=== PATIENT | male | born 1945 | race Caucasian/White ===

== ENCOUNTER 2019-11-20 18:31 | Inpatient (IN) | payer MEDICARE, OTHER ==
[2019-11-20] MEDS ORDERED: Dexamethasone 4 MG Tab PO ONE (20:29)
[2019-11-20] MEDS ORDERED: Sodium Chloride 0.9% 1,000 ML IV SCH ×2 (20:30→23:17)
--- NOTE | 2019-11-20 20:49 | EDM.PDOC ---
ED HPI GENERAL MEDICAL PROBLEM - General Chief Complaint: Respiratory Problem Stated Complaint: COVID Time Seen by Provider: 11/20/19 20:00 Source of Information: Reports: Patient History Limitations: Reports: No Limitations - History of Present Illness INITIAL COMMENTS - FREE TEXT/NARRATIVE: chief complaint: shortness of breath This is a 74 year old male presents to the ER via POV, reports he was camping with friends last week. [place] he got cold/chilled. On Sunday He started to have a cough, nausea, vomiting, chills and shortness of breath. He called on Sunday and had a virtual clinic visit with recommendation for Covid testing on Sunday. He had a drive-by Covid test which was positive. He tried to stay at home but today he was very weak, coughing, and was very short of breath with any activity. His last meal was a banana this morning, very little fluids today. void a little, bowel movement normal Past medical history -Asthma- use inhaler bid -Venous stasis ulcers- bilateral of lower legs -hypertension denies diabetes, smoking, or any heart procedures.or DE Onset: Gradual Onset Date: 11/16/19 Duration: Day(s):, Getting Worse Location: Reports: Chest (cough with shortness of breath), Generalized Quality: Reports: Other (weakness) Severity: Severe Improves with: Reports: Rest Worsens with: Reports: Eating, Movement Context: Reports: Other (Covid ) Associated Symptoms: Reports: Cough, Fever/Chills, Headaches, Loss of Appetite, Malaise, Nausea/Vomiting, Shortness of Breath, Weakness - Related Data Allergies Allergy/AdvReac Type Severity Reaction Status Date / Time amlodipine besylate Allergy Swelling Verified 11/20/19 19:01 [From [facility]] Sulfa (Sulfonamide Allergy Cannot Verified 11/20/19 19:01 Antibiotics) Remember Home Meds: Home Meds Fluticasone Propionate [Flovent] 1 squirt NASBOTH DAILY 02/08/14 [History] Lisinopril 40 mg PO DAILY 02/08/14 [History] Warfarin [Coumadin] 2.5 mg PO ASDIRECTED 02/08/14 [History] Albuterol [IJD: Ventolin HFA] 2 puff INH Q6HR PRN 06/29/15 [History] Sildenafil Citrate [Viagra] 100 mg PO ASDIRECTED PRN 06/29/15 [History] Fluticasone Propion/Salmeterol [Wixela 250-50 Inhub] 1 dose INH BID 11/20/19 [History] Gabapentin [Neurontin] 300 mg PO BID 11/20/19 [History] Meloxicam 15 mg PO DAILY 11/20/19 [History] Tamsulosin HCl 0.4 mg PO DAILY 11/20/19 [History] hydroCHLOROthiazide [Hydrochlorothiazide] 25 mg PO DAILY 11/20/19 [History] Past Medical History HEENT History: Reports: Cataract, Impaired Vision, Sinusitis Other HEENT History: wears glasses Cardiovascular History: Reports: Blood Clots/VTE/DVT, Hypertension, SOB on Exertion Respiratory History: Reports: Asthma Gastrointestinal History: Reports: Colon Polyp, GERD Genitourinary History: Reports: Prostate Disorder, Renal Calculus Musculoskeletal History: Reports: Gout Endocrine/Metabolic History: Reports: Obesity/BMI 30+ Dermatologic History: Reports: Venous Stasis Dermatitis - Infectious Disease History Infectious Disease History: Reports: Chicken Pox, Measles, Mumps - Past Surgical History Respiratory Surgical History: Reports: None GI Surgical History: Reports: Colonoscopy, Hernia, Abdominal Endocrine Surgical History: Reports: None Musculoskeletal Surgical History: Reports: Arthroscopic Knee, Shoulder Surgery Dermatological Surgical History: Reports: Skin Biopsy Social & Family History - Family History Cardiac: Reports: DE Oncologic: Reports: Bone, Breast - Tobacco Use Smoking Status *Q: Never Smoker - Caffeine Use Caffeine Use: Reports: Coffee - Alcohol Use Days Per Week of Alcohol Use: 7 Number of Drinks Per Day: 1 Total Drinks Per Week: 7 Date of Last Drink: 11/17/19 - Recreational Drug Use Recreational Drug Use: No - Living Situation & Occupation Living situation: Reports: (Lives alone, two year ago, 2 Daughters (both live in [place], [place]), retired lives [facility].) Occupation: Retired ED ROS GENERAL - Review of Systems Review Of Systems: See Below Constitutional: Reports: Fever, Chills, Malaise, Weakness, Fatigue, Decreased Appetite HEENT: Reports: Glasses Respiratory: Reports: Shortness of Breath, Wheezing, Cough, Sputum Cardiovascular: Reports: Dyspnea on Exertion Endocrine: Reports: Fatigue GI/Abdominal: Reports: Decreased Appetite, Nausea, Vomiting : Reports: No Symptoms Skin: Reports: Wound (bilateral lower legs with venous statis ulcers) Neurological: Reports: Weakness Psychiatric: Reports: No Symptoms Hematologic/Lymphatic: Reports: Easy Bleeding (Coumadin) Immunologic: Reports: No Symptoms ED EXAM, GENERAL - Physical Exam Exam: See Below Exam Limited By: Respiratory Distress (neat and clean, appears ill, pallor, speaking in short sentences, frequent cough, oxygen sat 80% upon arrival to ER room.) General Appearance: Alert, Moderate Distress Eye Exam: Bilateral Eye: EOMI, Normal Inspection, PERRL Ears: Normal External Exam, Normal Canal (yellow ceremen noted in canal), Hearing Grossly Normal Ear Exam: Bilateral Ear: Auricle Normal, Canal Normal, TM normal Nose: Normal Inspection, Normal Mucosa Throat/Mouth: Normal Lips, Normal Teeth, No Airway Compromise, Inflammation, Other (tongue and oral pharaynx bright red) Head: Atraumatic, Normocephalic Neck: Normal Inspection, Supple, Non-Tender Respiratory/Chest: Decreased Breath Sounds, Crackles (bilateral at bases.), Wheezing (scattered, inspiratory), Accessory Muscle Use, Other (productive cough) Cardiovascular: Regular Rate, Rhythm, No Murmur Peripheral Pulses: 2+: Radial (L), Radial (R) GI/Abdominal: Normal Bowel Sounds, Soft, Non-Tender, No Organomegaly (Male) Exam: Deferred Rectal (Males) Exam: Deferred Extremities: Other (lower legs wrapped due to venous statis ulcers. ) Neurological: Alert, Oriented, No Motor/Sensory Deficits Psychiatric: Normal Affect, Normal Mood Skin Exam: Other (bilateral lower legs wrapped for v. s. ulcers. ) Lymphatic: No Adenopathy Course - Vital Signs Last Recorded V/S: Last Vital Signs Temp 37.1 C 11/20/19 19:07 Pulse 74 11/20/19 21:40 Resp 24 H 11/20/19 21:40 BP 134/76 11/20/19 21:40 Pulse Ox 94 L 11/20/19 21:40 - Orders/Labs/Meds Orders: Active Orders 24 hr Category Date Time Status Cardiac Monitoring [RC] .As Directed Care 11/20/19 20:37 Active CULTURE BLOOD [BC] Urgent Lab 11/20/19 22:11 Ordered CULTURE BLOOD [BC] Urgent Lab 11/20/19 22:11 Ordered Sodium Chloride 0.9% [Normal Saline] 1,000 ml Med 11/20/19 20:30 Active IV ASDIRECTED cefTRIAXone [Rocephin] 2 gm Med 11/20/19 22:15 Active Sodium Chloride 0.9% [Normal Saline] 50 ml IV Q24H Blood Culture x2 Reflex Set [OM.PC] Urgent Oth 11/20/19 22:11 Ordered Medication Orders Sodium Chloride (Normal Saline) 1,000 mls @ 999 mls/hr IV ASDIRECTED SABINO Last Admin: 11/20/19 20:48 Dose: 999 mls/hr Documented by: KRYSTAL Ceftriaxone Sodium 2 gm/ (Sodium Chloride) 50 mls @ 100 mls/hr IV Q24H SABINO Labs: Laboratory Tests 11/20/19 11/20/19 11/20/19 Range/Units 20:33 20:50 20:50 WBC (4.5-11.0) K/uL RBC (4.30-5.90) M/uL Hgb (12.0-15.0) g/dL Hct (40.0-54.0) % MCV (80-98) fL MCH (27-31) pg MCHC (32-36) % Plt Count (150-400) K/uL Neut % (Auto) (36-66) % Lymph % (Auto) (24-44) % Collin % (Auto) (2-6) % Eos % (Auto) (2-4) % Baso % (Auto) (0-1) % PT 22.2 H (9.5-12.0) sec INR 2.07 H (0.80-1.20) D-Dimer, Quantitative 845 H (0.0-400.0) ng/mL Sodium (140-148) mmol/L Potassium (3.6-5.2) mmol/L Chloride (100-108) mmol/L Carbon Dioxide (21-32) mmol/L Anion Gap (5.0-14.0) mmol/L BUN (7-18) mg/dL Creatinine (0.8-1.3) mg/dL Est Cr Clr Drug Dosing mL/min Estimated GFR (MDRD) (>60) Glucose (74-106) mg/dL Calcium (8.5-10.1) mg/dL Magnesium (1.8-2.4) mg/dL Total Bilirubin (0.2-1.0) mg/dL AST (15-37) U/L ALT (12-78) U/L Alkaline Phosphatase (46-116) U/L Lactate Dehydrogenase 386 H (85-227) U/L C-Reactive Protein 17.45 H (0.0-0.3) mg/dL Total Protein (6.4-8.2) g/dL Albumin (3.4-5.0) g/dL Globulin (2.3-3.5) g/dL Albumin/Globulin Ratio (1.2-2.2) Amylase (25-115) U/L Lipase 91 (73-393) U/L Procalcitonin ng/mL Urine Color (YELLOW) Urine Appearance (CLEAR) Urine pH (5.0-8.0) Ur Specific Orange (1.008-1.030) Urine Protein (NEGATIVE) mg/dL Urine Glucose (UA) (NEGATIVE) mg/dL Urine Ketones (NEGATIVE) mg/dL Urine Occult Blood (NEGATIVE) Urine Nitrite (NEGATIVE) Urine Bilirubin (NEGATIVE) Urine Urobilinogen (0.2-1.0) EU/dL Ur Leukocyte Esterase (NEGATIVE) Urine RBC (0-5) Urine WBC (0-5) Ur Epithelial Cells Amorphous Sediment Urine Bacteria Urine Mucus Urine Other 11/20/19 11/20/19 11/20/19 Range/Units 20:50 20:50 20:50 WBC 8.6 (4.5-11.0) K/uL RBC 4.34 (4.30-5.90) M/uL Hgb 13.0 D (12.0-15.0) g/dL Hct 41.2 (40.0-54.0) % MCV 95 (80-98) fL MCH 30 (27-31) pg MCHC 32 (32-36) % Plt Count 163 (150-400) K/uL Neut % (Auto) 84 H (36-66) % Lymph % (Auto) 8 L (24-44) % Collin % (Auto) 8 H (2-6) % Eos % (Auto) 0 L (2-4) % Baso % (Auto) 0 (0-1) % PT (9.5-12.0) sec INR (0.80-1.20) D-Dimer, Quantitative (0.0-400.0) ng/mL Sodium 137 L (140-148) mmol/L Potassium 3.9 (3.6-5.2) mmol/L Chloride 101 (100-108) mmol/L Carbon Dioxide 28 (21-32) mmol/L Anion Gap 11.9 (5.0-14.0) mmol/L BUN 40 H D (7-18) mg/dL Creatinine 1.8 H (0.8-1.3) mg/dL Est Cr Clr Drug Dosing 39.52 mL/min Estimated GFR (MDRD) 37 L (>60) Glucose 101 (74-106) mg/dL Calcium 8.6 (8.5-10.1) mg/dL Magnesium (1.8-2.4) mg/dL Total Bilirubin 0.4 (0.2-1.0) mg/dL AST 63 H D (15-37) U/L ALT 39 (12-78) U/L Alkaline Phosphatase 70 (46-116) U/L Lactate Dehydrogenase (85-227) U/L C-Reactive Protein (0.0-0.3) mg/dL Total Protein 7.2 (6.4-8.2) g/dL Albumin 2.7 L (3.4-5.0) g/dL Globulin 4.5 H (2.3-3.5) g/dL Albumin/Globulin Ratio 0.6 L (1.2-2.2) Amylase (25-115) U/L Lipase (73-393) U/L Procalcitonin 0.40 ng/mL Urine Color (YELLOW) Urine Appearance (CLEAR) Urine pH (5.0-8.0) Ur Specific Orange (1.008-1.030) Urine Protein (NEGATIVE) mg/dL Urine Glucose (UA) (NEGATIVE) mg/dL Urine Ketones (NEGATIVE) mg/dL Urine Occult Blood (NEGATIVE) Urine Nitrite (NEGATIVE) Urine Bilirubin (NEGATIVE) Urine Urobilinogen (0.2-1.0) EU/dL Ur Leukocyte Esterase (NEGATIVE) Urine RBC (0-5) Urine WBC (0-5) Ur Epithelial Cells Amorphous Sediment Urine Bacteria Urine Mucus Urine Other 11/20/19 11/20/19 Range/Units 20:50 21:48 WBC (4.5-11.0) K/uL RBC (4.30-5.90) M/uL Hgb (12.0-15.0) g/dL Hct (40.0-54.0) % MCV (80-98) fL MCH (27-31) pg MCHC (32-36) % Plt Count (150-400) K/uL Neut % (Auto) (36-66) % Lymph % (Auto) (24-44) % Collin % (Auto) (2-6) % Eos % (Auto) (2-4) % Baso % (Auto) (0-1) % PT (9.5-12.0) sec INR (0.80-1.20) D-Dimer, Quantitative (0.0-400.0) ng/mL Sodium (140-148) mmol/L Potassium (3.6-5.2) mmol/L Chloride (100-108) mmol/L Carbon Dioxide (21-32) mmol/L Anion Gap (5.0-14.0) mmol/L BUN (7-18) mg/dL Creatinine (0.8-1.3) mg/dL Est Cr Clr Drug Dosing mL/min Estimated GFR (MDRD) (>60) Glucose (74-106) mg/dL Calcium (8.5-10.1) mg/dL Magnesium 1.9 (1.8-2.4) mg/dL Total Bilirubin (0.2-1.0) mg/dL AST (15-37) U/L ALT (12-78) U/L Alkaline Phosphatase (46-116) U/L Lactate Dehydrogenase (85-227) U/L C-Reactive Protein (0.0-0.3) mg/dL Total Protein (6.4-8.2) g/dL Albumin (3.4-5.0) g/dL Globulin (2.3-3.5) g/dL Albumin/Globulin Ratio (1.2-2.2) Amylase 52 (25-115) U/L Lipase (73-393) U/L Procalcitonin ng/mL Urine Color Yellow (YELLOW) Urine Appearance Slightly cloudy A (CLEAR) Urine pH 5.5 (5.0-8.0) Ur Specific Orange 1.025 (1.008-1.030) Urine Protein Trace H (NEGATIVE) mg/dL Urine Glucose (UA) Negative (NEGATIVE) mg/dL Urine Ketones Negative (NEGATIVE) mg/dL Urine Occult Blood Negative (NEGATIVE) Urine Nitrite Negative (NEGATIVE) Urine Bilirubin Negative (NEGATIVE) Urine Urobilinogen 0.2 (0.2-1.0) EU/dL Ur Leukocyte Esterase Negative (NEGATIVE) Urine RBC Not seen (0-5) Urine WBC 0-5 (0-5) Ur Epithelial Cells Few Amorphous Sediment Not seen Urine Bacteria Moderate Urine Mucus Moderate Urine Other Meds: Medications Generic Name Dose Route Start Last Admin Trade Name Ana PRN Reason Stop Dose Admin Sodium Chloride 1,000 mls @ 999 mls/hr 11/20/19 20:30 11/20/19 20:48 Normal Saline IV 999 mls/hr ASDIRECTED SABINO Administration Ceftriaxone Sodium 2 gm/ 50 mls @ 100 mls/hr 11/20/19 22:15 Sodium Chloride IV Q24H SABINO Discontinued Medications Generic Name Dose Route Start Last Admin Trade Name Ana PRN Reason Stop Dose Admin Dexamethasone 6 mg 11/20/19 20:29 11/20/19 20:48 Dexamethasone PO 11/20/19 20:30 6 mg ONETIME ONE Administration - Re-Assessments/Exams Free Text/Narrative Re-Assessment/Exam: 11/20/19 21:02 consult with Hospitalist discussed plan of care with Mr. Almanza -IV fluids -Dexamethasone 6 mg po once -labs- CBC, CMP, LDH, CRP,INR, PT, D-DIMER, PROCALCITONIN, AMYLASE, LIPASE, MG++., URINE WITH MICRO -Imaging- Chest x-ray -no nebulizer treatments - inhalers okay -admit to hospital for further care and treatment Mr. Almanza agrees with plan of care 11/20/19 22:36 chest x-ray bilateral pneumonia, procalcitonin, LDH, CRP elevated. urine pending. added blood cultures x 2 admission ordered reviewed with Hospitalist admit to ICU Med-surg overflow Departure - Departure Time of Disposition: 21:06 Disposition: Admitted As Inpatient 66 Condition: Serious Clinical Impression: Hypoxemia, Sars-associated coronavirus as the cause of diseases classified elsewhere, Pneumonia - Discharge Information *PRESCRIPTION DRUG MONITORING PROGRAM REVIEWED*: Not Applicable *COPY OF PRESCRIPTION DRUG MONITORING REPORT IN PATIENT [place]: Not Applicable Sepsis Event Note (ED) - Evaluation Sepsis Screening Result: No Definite Risk - Focused Exam Vital Signs: Vital Signs Temp Pulse Resp BP Pulse Ox 11/20/19 21:40 74 24 H 134/76 94 L 11/20/19 20:30 72 26 H 129/87 94 L 11/20/19 19:59 72 26 H 133/84 94 L 11/20/19 19:29 74 22 H 133/84 94 L 11/20/19 19:10 26 H 94 L 11/20/19 19:07 37.1 C 81 27 H 129/81 80 L - My Orders Last 24 Hours: My Active Orders 11/20/19 20:30 Sodium Chloride 0.9% [Normal Saline] 1,000 ml IV ASDIRECTED 11/20/19 20:37 Cardiac Monitoring [RC] .As Directed 11/20/19 22:11 CULTURE BLOOD [BC] Urgent CULTURE BLOOD [BC] Urgent Blood Culture x2 Reflex Set [OM.PC] Urgent 11/20/19 22:15 cefTRIAXone [Rocephin] 2 gm Sodium Chloride 0.9% [Normal Saline] 50 ml IV Q24H - Assessment/Plan Last 24 Hours: My Active Orders 11/20/19 20:30 Sodium Chloride 0.9% [Normal Saline] 1,000 ml IV ASDIRECTED 11/20/19 20:37 Cardiac Monitoring [RC] .As Directed 11/20/19 22:11 CULTURE BLOOD [BC] Urgent CULTURE BLOOD [BC] Urgent Blood Culture x2 Reflex Set [OM.PC] Urgent 11/20/19 22:15 cefTRIAXone [Rocephin] 2 gm Sodium Chloride 0.9% [Normal Saline] 50 ml IV Q24H
--- NOTE | 2019-11-20 22:09 | CRLCR ---
INDICATION: Shortness of breath, positive cough TECHNIQUE: Portable upright AP view of the chest COMPARISON: None FINDINGS: There is patchy airspace disease throughout the left lung. Airspace disease is also noted in the right upper lung. The right lung base is relatively spared. There is no sizable pleural effusion or pneumothorax. The cardiac silhouette is not enlarged. The visualized osseous structures are unremarkable. IMPRESSION: Patchy bilateral airspace disease with relative sparing of the right lung base. Findings are compatible with COVID-19 pneumonia. Correlate clinically. Dictated by Anabela Romero MD @ Nov 20 2019 10:06PM Signed by Dr. Anabela Romero @ Nov 20 2019 10:08PM
[2019-11-20] MEDS ORDERED: cefTRIAXone 2 GM in Sodium Chloride 0.9% 50 ML IV SCH (22:15)
--- NOTE | 2019-11-20 22:45 | PCM.HP.2 ---
H&P History of Present Illness - General Date of Service: 11/20/19 Admit Problem/Dx: Admission Diagnosis/Problem Admission Diagnosis/Problem Pneumonia due to other specified infectious organisms Source of Information: Patient History Limitations: Reports: No Limitations - History of Present Illness Initial Comments - Free Text/Narative: - History of Present Illness INITIAL COMMENTS - FREE TEXT/NARRATIVE: chief complaint: shortness of breath This is a 74 year old male presents to the ER via POV, reports he was camping with friends last week. [place] he got cold/chilled. On Sunday He started to have a cough, nausea, vomiting, chills and shortness of breath. He called on Sunday and had a virtual clinic visit with recommendation for Covid testing on Sunday. He had a drive-by Covid test which was positive. He tried to stay at home but today he was very weak, coughing, and was very short of breath with any activity. His last meal was a banana this morning, very little fluids today. void a little, bowel movement normal Past medical history -Asthma- use inhaler bid -Venous stasis ulcers- bilateral of lower legs -hypertension denies diabetes, smoking, or any heart procedures.or VT Onset of Symptoms: Reports: Gradual Symptom Onset Date: 11/16/19 Duration of Symptoms: Reports: Getting Worse Location: Reports: Generalized (Covid positive with shortness of breath) Quality: Reports: Other (shortness of breath with activity. ) Severity: Severe Improves with: Reports: None Worsens with: Reports: Breathing, Movement Context: Reports: Other (Covid positive since Sunday ) Associated Symptoms: Reports: Cough, Fever/Chills, Headaches, Loss of Appetite, Malaise, Nausea/Vomiting, Shortness of Breath, Weakness - Related Data Allergies/Adverse Reactions: Allergies Allergy/AdvReac Type Severity Reaction Status Date / Time amlodipine besylate Allergy Swelling Verified 11/20/19 19:01 [From [facility]] Sulfa (Sulfonamide Allergy Cannot Verified 11/20/19 19:01 Antibiotics) Remember Home Medications: Home Meds Fluticasone Propionate [Flovent] 1 squirt NASBOTH DAILY 02/08/14 [History] Lisinopril 40 mg PO DAILY 02/08/14 [History] Warfarin [Coumadin] 2.5 mg PO ASDIRECTED 02/08/14 [History] Albuterol [IJD: Ventolin HFA] 2 puff INH Q6HR PRN 06/29/15 [History] Sildenafil Citrate [Viagra] 100 mg PO ASDIRECTED PRN 06/29/15 [History] Fluticasone Propion/Salmeterol [Wixela 250-50 Inhub] 1 dose INH BID 11/20/19 [History] Gabapentin [Neurontin] 300 mg PO BID 11/20/19 [History] Meloxicam 15 mg PO DAILY 11/20/19 [History] Tamsulosin HCl 0.4 mg PO DAILY 11/20/19 [History] hydroCHLOROthiazide [Hydrochlorothiazide] 25 mg PO DAILY 11/20/19 [History] Past Medical History HEENT History: Reports: Cataract, Impaired Vision, Sinusitis Other HEENT History: wears glasses Cardiovascular History: Reports: Blood Clots/VTE/DVT, Hypertension, SOB on Exertion Respiratory History: Reports: Asthma Gastrointestinal History: Reports: Colon Polyp, GERD Genitourinary History: Reports: Prostate Disorder, Renal Calculus Musculoskeletal History: Reports: Gout Endocrine/Metabolic History: Reports: Obesity/BMI 30+ Dermatologic History: Reports: Venous Stasis Dermatitis - Infectious Disease History Infectious Disease History: Reports: Chicken Pox, Measles, Mumps - Past Surgical History Respiratory Surgical History: Reports: None GI Surgical History: Reports: Colonoscopy, Hernia, Abdominal Endocrine Surgical History: Reports: None Musculoskeletal Surgical History: Reports: Arthroscopic Knee, Shoulder Surgery Dermatological Surgical History: Reports: Skin Biopsy Social & Family History - Family History Cardiac: Reports: VT Oncologic: Reports: Bone, Breast - Tobacco Use Smoking Status *Q: Never Smoker - Caffeine Use Caffeine Use: Reports: Coffee - Alcohol Use Days Per Week of Alcohol Use: 7 Number of Drinks Per Day: 1 Total Drinks Per Week: 7 Date of Last Drink: 11/17/19 - Recreational Drug Use Recreational Drug Use: No - Living Situation & Occupation Living situation: Reports: (Lives alone, two year ago, 2 Daughters (both live in [place], [place]), retired lives [facility].) Occupation: Retired H&P Review of Systems - Review of Systems: Review Of Systems: See Below General: Reports: Fever, Chills, Malaise, Weakness, Fatigue, Decreased Appetite HEENT: Reports: Glasses, Headaches (intermittent) Pulmonary: Reports: Shortness of Breath, Wheezing, Pleuritic Chest Pain, Cough, Sputum Cardiovascular: Reports: Dyspnea on Exertion, Orthopnea Gastrointestinal: Reports: Abdominal Pain, Decreased Appetite, Nausea, Vomiting Genitourinary: Reports: No Symptoms Musculoskeletal: Reports: Muscle Pain, Muscle Stiffness Skin: Reports: Other (bilateral lower legs with venous statis ulcers) Psychiatric: Reports: No Symptoms Neurological: Reports: Headache (intermittent) Hematologic/Lymphatic: Reports: Easy Bleeding (Coumadin 2.5mg po daily for hx of DVT) Immunologic: Reports: No Symptoms Exam - Exam Exam: See Below - Vital Signs Vital Signs: Last Vital Signs Temp 37.1 C 11/20/19 19:07 Pulse 74 11/20/19 21:40 Resp 24 H 11/20/19 21:40 BP 134/76 11/20/19 21:40 Pulse Ox 94 L 11/20/19 21:40 Weight: 104.326 kg - Exam Quality Assessment: Supplemental Oxygen, DVT Prophylaxis, Skin Breakdown (bilateral lower legs with venous stasis ulcers.) General: Alert, Oriented, Cooperative, Moderate Distress HEENT: PERRLA, Conjunctiva Clear, EACs Clear, EOMI, Hearing Intact, Glasses Neck: Supple, Trachea Midline Lungs: Decreased Breath Sounds (bilateral decreased breath sound, inspiritory wheezing, bilateral crackles.), Crackles, Wheezing Cardiovascular: Regular Rate, Regular Rhythm, Normal S1, Normal S2 GI/Abdominal Exam: Normal Bowel Sounds, Soft, Non-Tender, No Distention (Male) Exam: Deferred Rectal (Males) Exam: Deferred Back Exam: Normal Inspection, Full Range of Motion Extremities: Other (bilateral lower leg wrapped for venous stasis ulcers) Peripheral Pulses: 2+: Radial (L), Radial (R) Skin: Warm, Dry, Other (bilateral legs wrapped due to weeping v.s. ulcers.) Neurological: Reflexes Equal Bilateral, Strength Equal Bilateral, Normal Speech, Other Neuro Extensive - Mental Status: Alert, Oriented x3, Normal Mood/Affect, Normal Cognition Psychiatric: Alert, Normal Affect, Normal Mood Physical Exam Comments:: 74 year old male appear weak and pallor. speaking in short sentences due to shortness of breath. frequent productive cough. - Patient Data Lab Results Last 24 hrs: Laboratory Results - last 24 hr 11/20/19 11/20/19 11/20/19 Range/Units 20:33 20:50 20:50 WBC (4.5-11.0) K/uL RBC (4.30-5.90) M/uL Hgb (12.0-15.0) g/dL Hct (40.0-54.0) % MCV (80-98) fL MCH (27-31) pg MCHC (32-36) % Plt Count (150-400) K/uL Neut % (Auto) (36-66) % Lymph % (Auto) (24-44) % Dooly % (Auto) (2-6) % Eos % (Auto) (2-4) % Baso % (Auto) (0-1) % PT 22.2 H (9.5-12.0) sec INR 2.07 H (0.80-1.20) D-Dimer, Quantitative 845 H (0.0-400.0) ng/mL Sodium (140-148) mmol/L Potassium (3.6-5.2) mmol/L Chloride (100-108) mmol/L Carbon Dioxide (21-32) mmol/L Anion Gap (5.0-14.0) mmol/L BUN (7-18) mg/dL Creatinine (0.8-1.3) mg/dL Est Cr Clr Drug Dosing mL/min Estimated GFR (MDRD) (>60) Glucose (74-106) mg/dL Calcium (8.5-10.1) mg/dL Magnesium (1.8-2.4) mg/dL Total Bilirubin (0.2-1.0) mg/dL AST (15-37) U/L ALT (12-78) U/L Alkaline Phosphatase (46-116) U/L Lactate Dehydrogenase 386 H (85-227) U/L C-Reactive Protein 17.45 H (0.0-0.3) mg/dL Total Protein (6.4-8.2) g/dL Albumin (3.4-5.0) g/dL Globulin (2.3-3.5) g/dL Albumin/Globulin Ratio (1.2-2.2) Amylase (25-115) U/L Lipase 91 (73-393) U/L Procalcitonin ng/mL Urine Color (YELLOW) Urine Appearance (CLEAR) Urine pH (5.0-8.0) Ur Specific Luana (1.008-1.030) Urine Protein (NEGATIVE) mg/dL Urine Glucose (UA) (NEGATIVE) mg/dL Urine Ketones (NEGATIVE) mg/dL Urine Occult Blood (NEGATIVE) Urine Nitrite (NEGATIVE) Urine Bilirubin (NEGATIVE) Urine Urobilinogen (0.2-1.0) EU/dL Ur Leukocyte Esterase (NEGATIVE) Urine RBC (0-5) Urine WBC (0-5) Ur Epithelial Cells Amorphous Sediment Urine Bacteria Urine Mucus Urine Other 11/20/19 11/20/19 11/20/19 Range/Units 20:50 20:50 20:50 WBC 8.6 (4.5-11.0) K/uL RBC 4.34 (4.30-5.90) M/uL Hgb 13.0 D (12.0-15.0) g/dL Hct 41.2 (40.0-54.0) % MCV 95 (80-98) fL MCH 30 (27-31) pg MCHC 32 (32-36) % Plt Count 163 (150-400) K/uL Neut % (Auto) 84 H (36-66) % Lymph % (Auto) 8 L (24-44) % Dooly % (Auto) 8 H (2-6) % Eos % (Auto) 0 L (2-4) % Baso % (Auto) 0 (0-1) % PT (9.5-12.0) sec INR (0.80-1.20) D-Dimer, Quantitative (0.0-400.0) ng/mL Sodium 137 L (140-148) mmol/L Potassium 3.9 (3.6-5.2) mmol/L Chloride 101 (100-108) mmol/L Carbon Dioxide 28 (21-32) mmol/L Anion Gap 11.9 (5.0-14.0) mmol/L BUN 40 H D (7-18) mg/dL Creatinine 1.8 H (0.8-1.3) mg/dL Est Cr Clr Drug Dosing 39.52 mL/min Estimated GFR (MDRD) 37 L (>60) Glucose 101 (74-106) mg/dL Calcium 8.6 (8.5-10.1) mg/dL Magnesium (1.8-2.4) mg/dL Total Bilirubin 0.4 (0.2-1.0) mg/dL AST 63 H D (15-37) U/L ALT 39 (12-78) U/L Alkaline Phosphatase 70 (46-116) U/L Lactate Dehydrogenase (85-227) U/L C-Reactive Protein (0.0-0.3) mg/dL Total Protein 7.2 (6.4-8.2) g/dL Albumin 2.7 L (3.4-5.0) g/dL Globulin 4.5 H (2.3-3.5) g/dL Albumin/Globulin Ratio 0.6 L (1.2-2.2) Amylase (25-115) U/L Lipase (73-393) U/L Procalcitonin 0.40 ng/mL Urine Color (YELLOW) Urine Appearance (CLEAR) Urine pH (5.0-8.0) Ur Specific Luana (1.008-1.030) Urine Protein (NEGATIVE) mg/dL Urine Glucose (UA) (NEGATIVE) mg/dL Urine Ketones (NEGATIVE) mg/dL Urine Occult Blood (NEGATIVE) Urine Nitrite (NEGATIVE) Urine Bilirubin (NEGATIVE) Urine Urobilinogen (0.2-1.0) EU/dL Ur Leukocyte Esterase (NEGATIVE) Urine RBC (0-5) Urine WBC (0-5) Ur Epithelial Cells Amorphous Sediment Urine Bacteria Urine Mucus Urine Other 11/20/19 11/20/19 Range/Units 20:50 21:48 WBC (4.5-11.0) K/uL RBC (4.30-5.90) M/uL Hgb (12.0-15.0) g/dL Hct (40.0-54.0) % MCV (80-98) fL MCH (27-31) pg MCHC (32-36) % Plt Count (150-400) K/uL Neut % (Auto) (36-66) % Lymph % (Auto) (24-44) % Dooly % (Auto) (2-6) % Eos % (Auto) (2-4) % Baso % (Auto) (0-1) % PT (9.5-12.0) sec INR (0.80-1.20) D-Dimer, Quantitative (0.0-400.0) ng/mL Sodium (140-148) mmol/L Potassium (3.6-5.2) mmol/L Chloride (100-108) mmol/L Carbon Dioxide (21-32) mmol/L Anion Gap (5.0-14.0) mmol/L BUN (7-18) mg/dL Creatinine (0.8-1.3) mg/dL Est Cr Clr Drug Dosing mL/min Estimated GFR (MDRD) (>60) Glucose (74-106) mg/dL Calcium (8.5-10.1) mg/dL Magnesium 1.9 (1.8-2.4) mg/dL Total Bilirubin (0.2-1.0) mg/dL AST (15-37) U/L ALT (12-78) U/L Alkaline Phosphatase (46-116) U/L Lactate Dehydrogenase (85-227) U/L C-Reactive Protein (0.0-0.3) mg/dL Total Protein (6.4-8.2) g/dL Albumin (3.4-5.0) g/dL Globulin (2.3-3.5) g/dL Albumin/Globulin Ratio (1.2-2.2) Amylase 52 (25-115) U/L Lipase (73-393) U/L Procalcitonin ng/mL Urine Color Yellow (YELLOW) Urine Appearance Slightly cloudy A (CLEAR) Urine pH 5.5 (5.0-8.0) Ur Specific Luana 1.025 (1.008-1.030) Urine Protein Trace H (NEGATIVE) mg/dL Urine Glucose (UA) Negative (NEGATIVE) mg/dL Urine Ketones Negative (NEGATIVE) mg/dL Urine Occult Blood Negative (NEGATIVE) Urine Nitrite Negative (NEGATIVE) Urine Bilirubin Negative (NEGATIVE) Urine Urobilinogen 0.2 (0.2-1.0) EU/dL Ur Leukocyte Esterase Negative (NEGATIVE) Urine RBC Not seen (0-5) Urine WBC 0-5 (0-5) Ur Epithelial Cells Few Amorphous Sediment Not seen Urine Bacteria Moderate Urine Mucus Moderate Urine Other Result Diagrams: 11/20/19 20:50 11/20/19 20:50 Sepsis Event Note - Evaluation Sepsis Screening Result: No Definite Risk Current Stage of Sepsis: Sepsis Possible Source of Sepsis: Pulmonary - Focused Exam Sepsis Event Note Statement: Focused Sepsis Exam Completed Vital Signs: Vital Signs Temp Pulse Resp BP Pulse Ox 11/20/19 21:40 74 24 H 134/76 94 L 11/20/19 20:30 72 26 H 129/87 94 L 11/20/19 19:59 72 26 H 133/84 94 L 11/20/19 19:29 74 22 H 133/84 94 L 11/20/19 19:10 26 H 94 L 11/20/19 19:07 37.1 C 81 27 H 129/81 80 L Respiratory Effort Without Exertion: Abdominal Breathing, Use Of Accessory Muscles - Problem List (1) Pneumonia due to COVID-19 virus SNOMED Code(s): 749189540649045020 ICD Code: U07.1 - COVID-19; J12.89 - OTHER VIRAL PNEUMONIA Status: Acute Priority: High Current Visit: Yes (2) Pneumonia SNOMED Code(s): 763634078 ICD Code: J18.9 - PNEUMONIA, UNSPECIFIED ORGANISM Status: Acute Priority: High Current Visit: Yes Qualifiers: Pneumonia type: due to unspecified organism Laterality: bilateral Lung location: unspecified part of lung Qualified Code(s): J18.9 - Pneumonia, unspecified organism (3) Sars-associated coronavirus as the cause of diseases classified elsewhere SNOMED Code(s): 795406826 ICD Code: B97.21 - SARS-ASSOCIATED CORONAVIRUS CAUSING DISEASES CLASSD ELSWHR Status: Acute Priority: High Current Visit: Yes (4) Venous stasis ulcer of lower extremity SNOMED Code(s): 454326987, 309636642 ICD Code: I83.009 - VARICOSE VEINS OF UNSP LOWER EXTREMITY W ULCER OF UNSP S ITE; L97.909 - NON-PRS CHRONIC ULC UNSP PRT OF UNSP LOW LEG W UNSP SEVERITY Status: Acute Priority: High Current Visit: Yes Qualifiers: Laterality: bilateral Qualified Code(s): I83.019 - Varicose veins of right lower extremity with ulcer of unspecified site; I83.029 - Varicose veins of left lower extremity with ulcer of unspecified site; L97.919 - Non-pressure chronic ulcer of unspecified part of right lower leg with unspecified severity; L97.929 - Non-pressure chronic ulcer of unspecified part of left lower leg with unspecified severity (5) Asthma SNOMED Code(s): 858416243 ICD Code: J45.909 - UNSPECIFIED ASTHMA, UNCOMPLICATED Status: Acute Priority: High Current Visit: Yes Qualifiers: Asthma severity: moderate Asthma persistence: persistent Asthma complication type: unspecified Qualified Code(s): J45.40 - Moderate persistent asthma, uncomplicated (6) Hypertension SNOMED Code(s): 59167583 ICD Code: I10 - ESSENTIAL (PRIMARY) HYPERTENSION Status: Acute Priority: Medium Current Visit: Yes Qualifiers: Hypertension type: essential hypertension Qualified Code(s): I10 - Essent ial (primary) hypertension Problem List Initiated/Reviewed/Updated: Yes Orders Last 24hrs: Active Orders 24 hr Category Date Time Status Patient Status Manage Transfer [TRANSFER] Routine ADT 11/20/19 22:13 Active Cardiac Monitoring [RC] .As Directed Care 11/20/19 20:37 Active CULTURE BLOOD [BC] Urgent Lab 11/20/19 22:11 Ordered CULTURE BLOOD [BC] Urgent Lab 11/20/19 22:11 Ordered Sodium Chloride 0.9% [Normal Saline] 1,000 ml Med 11/20/19 20:30 Active IV ASDIRECTED cefTRIAXone [Rocephin] 2 gm Med 11/20/19 22:15 Active Sodium Chloride 0.9% [Normal Saline] 50 ml IV Q24H Blood Culture x2 Reflex Set [OM.PC] Urgent Oth 11/20/19 22:11 Ordered Resuscitation Status Routine Resus Stat 11/20/19 22:16 Ordered Medication Orders Sodium Chloride (Normal Saline) 1,000 mls @ 999 mls/hr IV ASDIRECTED [facility] Last Admin: 11/20/19 20:48 Dose: 999 mls/hr Documented by: KRYSTAL Ceftriaxone Sodium 2 gm/ (Sodium Chloride) 50 mls @ 100 mls/hr IV Q24H [facility] Assessment/Plan Comment:: ASSESSMENT AND PLAN - COVID 19 WITH BILATERAL PNEUMONIA bilateral pneumonia with complication of Covid 19 - He was hypoxic with oxygen saturation of 80% on room air, applied nasal canula now at 92%. labs show elevated CRP, Procalcitonin, lactic acid pending, Chest X-ray shows left lobe with scattered patchy infiltrates and right upper lobe with infiltrates. He was give one liter fluid bolus of Normal Saline, Dexamethasone 6 mg po and IV Rocephin 2 gram in ER. plan to admit to ICU med-surg overflow for further care and treatment. -Antibiotic coverage with IV Doxycycline 100mg bid and ceftriaxone 2 gram every 24 hours -Supplement oxygen if needed to keep oxygen saturation greater than 92% -inhalers as directed - no nebulizers at this time -blood cultures x 2 pending -lactic acid -am labs CBC, BMP, PROCALCITONIN, CRP -am chest x-ray at 0900 Venous Stasis Ulcer -bilateral legs wrapped Asthma -continue nebs. Hypertension -continue outpatient medications Maintenance issues - - DVT prophylaxis - Coumadin 2.5 mg po daily - GI prophylaxis - PPI - Nutrition - regular diet - Edouard catheter - not indicated CODE STATUS - full Admission justification - This patient will be admitted for inpatient services and is medically appropriate meeting medical necessity for inpatient admission as outlined in my documentation. I reasonably expect the patient will require inpatient services that span a period time over 2 midnights. I reasonably expect this patient to be discharged or transferred within 96 hours [facility]. Disposition - anticipate discharge home after the hospital stay Primary care physician - Dr. Thomas Hospitalist- Simone Bueno M.D. - Mortality Measure Prognosis:: Good
[2019-11-20] MEDS ORDERED: Doxycycline 100 MG in Sodium Chloride 0.9% 100 ML IV SCH (23:17)
[2019-11-20] MEDS ORDERED: Warfarin 2.5 MG Tab PO SCH (23:17)
[2019-11-20] MEDS ORDERED: Docusate Sodium 100 MG Cap PO PRN (23:17)
[2019-11-20] MEDS ORDERED: Melatonin 3 MG Tab PO PRN (23:17)
[2019-11-20] MEDS ORDERED: LORazepam 2 MG/ML SDV IV PRN (23:17)
[2019-11-20] MEDS ORDERED: Morphine 2 MG/ML SYRINGE IVPUSH PRN (23:17)
[2019-11-20] MEDS ORDERED: Bisacodyl 5 MG Tab PO PRN (23:17)
[2019-11-20] MEDS ORDERED: Albuterol 8 GM Inhaler INH PRN (23:33)
[2019-11-21] MEDS: Albuterol/Ipratropium 4 GM Inhalation Spray INH SCH ×6 (00:32→19:34)
[2019-11-21] MEDS: Acetaminophen 325 MG Tab PO PRN (00:37)
[2019-11-21] MEDS ORDERED: Pantoprazole 40 MG Vial IVPUSH SCH (07:30)
[2019-11-21] MEDS: Fluticasone Propionate Nasal Spray 16 GM Bottle NASBOTH SCH (08:44)
[2019-11-21] MEDS: Formoterol/Mometasone 200-5 MCG 8.8 GM Inhaler IH SCH ×2 (08:44→20:32)
[2019-11-21] MEDS: Hydrochlorothiazide 25 MG Tab PO SCH (08:49)
[2019-11-21] MEDS: Gabapentin 300 MG Cap PO SCH ×2 (08:49→20:31)
[2019-11-21] MEDS: Meloxicam 7.5 MG Tab PO SCH (08:50)
[2019-11-21] MEDS: Tamsulosin 0.4 MG Cap.ER PO SCH (08:50)
[2019-11-21] MEDS: Pantoprazole 40 MG Tab.CR PO SCH (08:51)
[2019-11-21] MEDS: Lisinopril 20 MG Tab PO SCH (08:57)
[2019-11-21] MEDS ORDERED: FLUTICASONE PROPIONATE NASBOTH SCH (09:00)
--- NOTE | 2019-11-21 09:45 | PCM.PN ---
- General Info Date of Service: 11/21/19 Subjective Update: No acute events overnight following admission. Patient remains very dyspneic and has an intermittent cough. Coughing spells lead to increased shortness of breath and nausea. He is now on 4 L of supplemental oxygen. No complaints of fever, myalgias, nausea or diarrhea. He is very fatigued and weak. We did talk about starting Remdesivir. At this point I see no contraindications and he was interested in using this medication. - Review of Systems General: Reports: Weakness. Denies: Fever Pulmonary: Reports: Shortness of Breath, Cough - Patient Data Vitals - Most Recent: Last Vital Signs Temp 35.9 C L 11/21/19 08:00 Pulse 78 11/21/19 08:00 Resp 22 H 11/21/19 08:00 BP 153/96 H 11/21/19 08:57 Pulse Ox 87 L 11/21/19 08:00 Weight - Most Recent: 100.425 kg I&O - Last 24 Hours: Intake & Output 11/20/19 11/21/19 11/21/19 22:59 06:59 14:59 Intake Total 2261 Output Total 250 200 Balance 2010 - Lab Results Last 24 Hours: Laboratory Results - last 24 hr 11/20/19 11/20/19 11/20/19 Range/Units 20:33 20:50 20:50 WBC (4.5-11.0) K/uL RBC (4.30-5.90) M/uL Hgb (12.0-15.0) g/dL Hct (40.0-54.0) % MCV (80-98) fL MCH (27-31) pg MCHC (32-36) % Plt Count (150-400) K/uL Neut % (Auto) (36-66) % Lymph % (Auto) (24-44) % Gulf % (Auto) (2-6) % Eos % (Auto) (2-4) % Baso % (Auto) (0-1) % PT 22.2 H (9.5-12.0) sec INR 2.07 H (0.80-1.20) D-Dimer, Quantitative 845 H (0.0-400.0) ng/mL Sodium (140-148) mmol/L Potassium (3.6-5.2) mmol/L Chloride (100-108) mmol/L Carbon Dioxide (21-32) mmol/L Anion Gap (5.0-14.0) mmol/L BUN (7-18) mg/dL Creatinine (0.8-1.3) mg/dL Est Cr Clr Drug Dosing mL/min Estimated GFR (MDRD) (>60) Glucose (74-106) mg/dL Lactic Acid (0.4-2.0) mmol/L Calcium (8.5-10.1) mg/dL Magnesium (1.8-2.4) mg/dL Total Bilirubin (0.2-1.0) mg/dL AST (15-37) U/L ALT (12-78) U/L Alkaline Phosphatase (46-116) U/L Lactate Dehydrogenase 386 H (85-227) U/L C-Reactive Protein 17.45 H (0.0-0.3) mg/dL Total Protein (6.4-8.2) g/dL Albumin (3.4-5.0) g/dL Globulin (2.3-3.5) g/dL Albumin/Globulin Ratio (1.2-2.2) Amylase (25-115) U/L Lipase 91 (73-393) U/L Procalcitonin ng/mL Urine Color (YELLOW) Urine Appearance (CLEAR) Urine pH (5.0-8.0) Ur Specific [place] (1.008-1.030) Urine Protein (NEGATIVE) mg/dL Urine Glucose (UA) (NEGATIVE) mg/dL Urine Ketones (NEGATIVE) mg/dL Urine Occult Blood (NEGATIVE) Urine Nitrite (NEGATIVE) Urine Bilirubin (NEGATIVE) Urine Urobilinogen (0.2-1.0) EU/dL Ur Leukocyte Esterase (NEGATIVE) Urine RBC (0-5) Urine WBC (0-5) Ur Epithelial Cells Amorphous Sediment Urine Bacteria Urine Mucus Urine Other 11/20/19 11/20/19 11/20/19 Range/Units 20:50 20:50 20:50 WBC 8.6 (4.5-11.0) K/uL RBC 4.34 (4.30-5.90) M/uL Hgb 13.0 D (12.0-15.0) g/dL Hct 41.2 (40.0-54.0) % MCV 95 (80-98) fL MCH 30 (27-31) pg MCHC 32 (32-36) % Plt Count 163 (150-400) K/uL Neut % (Auto) 84 H (36-66) % Lymph % (Auto) 8 L (24-44) % Gulf % (Auto) 8 H (2-6) % Eos % (Auto) 0 L (2-4) % Baso % (Auto) 0 (0-1) % PT (9.5-12.0) sec INR (0.80-1.20) D-Dimer, Quantitative (0.0-400.0) ng/mL Sodium 137 L (140-148) mmol/L Potassium 3.9 (3.6-5.2) mmol/L Chloride 101 (100-108) mmol/L Carbon Dioxide 28 (21-32) mmol/L Anion Gap 11.9 (5.0-14.0) mmol/L BUN 40 H D (7-18) mg/dL Creatinine 1.8 H (0.8-1.3) mg/dL Est Cr Clr Drug Dosing 39.52 mL/min Estimated GFR (MDRD) 37 L (>60) Glucose 101 (74-106) mg/dL Lactic Acid (0.4-2.0) mmol/L Calcium 8.6 (8.5-10.1) mg/dL Magnesium (1.8-2.4) mg/dL Total Bilirubin 0.4 (0.2-1.0) mg/dL AST 63 H D (15-37) U/L ALT 39 (12-78) U/L Alkaline Phosphatase 70 (46-116) U/L Lactate Dehydrogenase (85-227) U/L C-Reactive Protein (0.0-0.3) mg/dL Total Protein 7.2 (6.4-8.2) g/dL Albumin 2.7 L (3.4-5.0) g/dL Globulin 4.5 H (2.3-3.5) g/dL Albumin/Globulin Ratio 0.6 L (1.2-2.2) Amylase (25-115) U/L Lipase (73-393) U/L Procalcitonin 0.40 ng/mL Urine Color (YELLOW) Urine Appearance (CLEAR) Urine pH (5.0-8.0) Ur Specific [place] (1.008-1.030) Urine Protein (NEGATIVE) mg/dL Urine Glucose (UA) (NEGATIVE) mg/dL Urine Ketones (NEGATIVE) mg/dL Urine Occult Blood (NEGATIVE) Urine Nitrite (NEGATIVE) Urine Bilirubin (NEGATIVE) Urine Urobilinogen (0.2-1.0) EU/dL Ur Leukocyte Esterase (NEGATIVE) Urine RBC (0-5) Urine WBC (0-5) Ur Epithelial Cells Amorphous Sediment Urine Bacteria Urine Mucus Urine Other 11/20/19 11/20/19 11/20/19 Range/Units 20:50 21:48 23:22 WBC (4.5-11.0) K/uL RBC (4.30-5.90) M/uL Hgb (12.0-15.0) g/dL Hct (40.0-54.0) % MCV (80-98) fL MCH (27-31) pg MCHC (32-36) % Plt Count (150-400) K/uL Neut % (Auto) (36-66) % Lymph % (Auto) (24-44) % [place] % (Auto) (2-6) % Eos % (Auto) (2-4) % Baso % (Auto) (0-1) % PT (9.5-12.0) sec INR (0.80-1.20) D-Dimer, Quantitative (0.0-400.0) ng/mL Sodium (140-148) mmol/L Potassium (3.6-5.2) mmol/L Chloride (100-108) mmol/L Carbon Dioxide (21-32) mmol/L Anion Gap (5.0-14.0) mmol/L BUN (7-18) mg/dL Creatinine (0.8-1.3) mg/dL Est Cr Clr Drug Dosing mL/min Estimated GFR (MDRD) (>60) Glucose (74-106) mg/dL Lactic Acid 2.0 (0.4-2.0) mmol/L Calcium (8.5-10.1) mg/dL Magnesium 1.9 (1.8-2.4) mg/dL Total Bilirubin (0.2-1.0) mg/dL AST (15-37) U/L ALT (12-78) U/L Alkaline Phosphatase (46-116) U/L Lactate Dehydrogenase (85-227) U/L C-Reactive Protein (0.0-0.3) mg/dL Total Protein (6.4-8.2) g/dL Albumin (3.4-5.0) g/dL Globulin (2.3-3.5) g/dL Albumin/Globulin Ratio (1.2-2.2) Amylase 52 (25-115) U/L Lipase (73-393) U/L Procalcitonin ng/mL Urine Color Yellow (YELLOW) Urine Appearance Slightly cloudy A (CLEAR) Urine pH 5.5 (5.0-8.0) Ur Specific [place] 1.025 (1.008-1.030) Urine Protein Trace H (NEGATIVE) mg/dL Urine Glucose (UA) Negative (NEGATIVE) mg/dL Urine Ketones Negative (NEGATIVE) mg/dL Urine Occult Blood Negative (NEGATIVE) Urine Nitrite Negative (NEGATIVE) Urine Bilirubin Negative (NEGATIVE) Urine Urobilinogen 0.2 (0.2-1.0) EU/dL Ur Leukocyte Esterase Negative (NEGATIVE) Urine RBC Not seen (0-5) Urine WBC 0-5 (0-5) Ur Epithelial Cells Few Amorphous Sediment Not seen Urine Bacteria Moderate Urine Mucus Moderate Urine Other 11/21/19 11/21/19 11/21/19 Range/Units 04:54 04:54 04:54 WBC 7.2 (4.5-11.0) K/uL RBC 3.92 L (4.30-5.90) M/uL Hgb 12.0 (12.0-15.0) g/dL Hct 37.4 L (40.0-54.0) % MCV 95 (80-98) fL MCH 31 (27-31) pg MCHC 32 (32-36) % Plt Count 162 (150-400) K/uL Neut % (Auto) 90 H (36-66) % Lymph % (Auto) 6 L (24-44) % [place] % (Auto) 4 (2-6) % Eos % (Auto) 0 L (2-4) % Baso % (Auto) 0 (0-1) % PT 25.5 H (9.5-12.0) sec INR 2.38 H (0.80-1.20) D-Dimer, Quantitative (0.0-400.0) ng/mL Sodium 138 L (140-148) mmol/L Potassium 4.5 (3.6-5.2) mmol/L Chloride 104 (100-108) mmol/L Carbon Dioxide 25 (21-32) mmol/L Anion Gap 13.5 (5.0-14.0) mmol/L BUN 39 H (7-18) mg/dL Creatinine 1.6 H (0.8-1.3) mg/dL Est Cr Clr Drug Dosing 44.46 mL/min Estimated GFR (MDRD) 42 L (>60) Glucose 113 H (74-106) mg/dL Lactic Acid (0.4-2.0) mmol/L Calcium 8.0 L (8.5-10.1) mg/dL Magnesium (1.8-2.4) mg/dL Total Bilirubin (0.2-1.0) mg/dL AST (15-37) U/L ALT (12-78) U/L Alkaline Phosphatase (46-116) U/L Lactate Dehydrogenase (85-227) U/L C-Reactive Protein 14.63 H (0.0-0.3) mg/dL Total Protein (6.4-8.2) g/dL Albumin (3.4-5.0) g/dL Globulin (2.3-3.5) g/dL Albumin/Globulin Ratio (1.2-2.2) Amylase (25-115) U/L Lipase (73-393) U/L Procalcitonin ng/mL Urine Color (YELLOW) Urine Appearance (CLEAR) Urine pH (5.0-8.0) Ur Specific [place] (1.008-1.030) Urine Protein (NEGATIVE) mg/dL Urine Glucose (UA) (NEGATIVE) mg/dL Urine Ketones (NEGATIVE) mg/dL Urine Occult Blood (NEGATIVE) Urine Nitrite (NEGATIVE) Urine Bilirubin (NEGATIVE) Urine Urobilinogen (0.2-1.0) EU/dL Ur Leukocyte Esterase (NEGATIVE) Urine RBC (0-5) Urine WBC (0-5) Ur Epithelial Cells Amorphous Sediment Urine Bacteria Urine Mucus Urine Other Med Orders - Current: Current Medications Acetaminophen (Tylenol) 650 mg PO Q4H PRN PRN Reason: Pain (Mild 1-3)/fever Last Admin: 11/21/19 00:37 Dose: 650 mg Documented by: Albuterol (Ventolin Hfa) 0 gm INH Q6HR PRN PRN Reason: Shortness of Breath Albuterol/Ipratropium (Combivent Respimat) 0 gm INH Q4H [facility] Last Admin: 11/21/19 08:41 Dose: 2 puff Documented by: Bisacodyl (Dulcolax) 5 mg PO DAILY PRN PRN Reason: Constipation Docusate Sodium (Colace) 100 mg PO BID PRN PRN Reason: Constipation Fluticasone Propionate (Flonase) 0 gm NASBOTH DAILY [facility] Last Admin: 11/21/19 08:44 Dose: 1 spray Documented by: Gabapentin (Neurontin) 300 mg PO BID [facility] Last Admin: 11/21/19 08:49 Dose: 300 mg Documented by: Hydrochlorothiazide (Hydrochlorothiazide) 25 mg PO DAILY [facility] Last Admin: 11/21/19 08:49 Dose: 25 mg Documented by: Doxycycline Hyclate 100 mg/ (Sodium Chloride) 100 mls @ 100 mls/hr IV Q12H [facility] Ceftriaxone Sodium 2 gm/ (Sodium Chloride) 50 mls @ 100 mls/hr IV Q24H [facility] Lisinopril (Prinivil) 40 mg PO DAILY [facility] Last Admin: 11/21/19 08:57 Dose: 40 mg Documented by: Lorazepam (Ativan) 1 mg IV Q6H PRN PRN Reason: Nausea/Vomiting Melatonin (Melatonin) 6 mg PO BEDTIME PRN PRN Reason: Insomnia Meloxicam (Mobic) 15 mg PO DAILY [facility] Last Admin: 11/21/19 08:50 Dose: 15 mg Documented by: Mometasone Furoate/Formoterol Fumar (Dulera 200-5 Mcg) 2 puff IH BID [facility] Last Admin: 11/21/19 08:44 Dose: 2 puff Documented by: Morphine Sulfate (Morphine) 2 mg IVPUSH Q2H PRN PRN Reason: Pain (severe 7-10) Ondansetron HCl (Zofran Odt) 4 mg PO Q6H PRN PRN Reason: Nausea able to take PO Oxycodone HCl (Oxycodone) 5 mg PO Q4H PRN PRN Reason: Pain (moderate 4-6) Pantoprazole Sodium (Protonix) 40 mg PO ACBREAKFAST [facility] Last Admin: 11/21/19 08:51 Dose: 40 mg Documented by: Tamsulosin HCl (Flomax) 0.4 mg PO DAILY [facility] Last Admin: 11/21/19 08:50 Dose: 0.4 mg Documented by: Warfarin Sodium (Coumadin) 2.5 mg PO DAILY@1300 [facility] Discontinued Medications Dexamethasone (Dexamethasone) 6 mg PO ONETIME ONE Stop: 11/20/19 20:30 Last Admin: 11/20/19 20:48 Dose: 6 mg Documented by: Sodium Chloride (Normal Saline) 1,000 mls @ 999 mls/hr IV ASDIRECTED [facility] Last Admin: 11/20/19 20:48 Dose: 999 mls/hr Documented by: Ceftriaxone Sodium 2 gm/ (Sodium Chloride) 50 mls @ 100 mls/hr IV Q24H [facility] Last Admin: 11/20/19 22:44 Dose: 100 mls/hr Documented by: Doxycycline Hyclate 100 mg/ (Sodium Chloride) 100 mls @ 100 mls/hr IV Q12H [facility] Last Admin: 11/21/19 00:05 Dose: 100 mls/hr Documented by: Sodium Chloride (Normal Saline) 1,000 mls @ 100 mls/hr IV ASDIRECTED [facility] - Exam Quality Assessment: Supplemental Oxygen General: Alert, Oriented, Cooperative, Mild Distress Lungs: Crackles (midl diffuse left > right ), Wheezing (mild left lower chest ). No: Normal Respiratory Effort (mild tachypnea ) Cardiovascular: Regular Rate, Irregular Rhythm GI/Abdominal Exam: Soft, No Distention Extremities: Other (both lower legs with RAJI stockings ). No: Increased Warmth Skin: Warm, Dry Psy/Mental Status: Alert, Normal Affect Sepsis Event Note - Evaluation Sepsis Screening Result: No Definite Risk - Focused Exam Vital Signs: Vital Signs Temp Pulse Resp BP BP Pulse Ox 11/21/19 08:57 153/96 H 11/21/19 08:00 35.9 C L 78 22 H 153/96 H 87 L 11/21/19 03:29 35.7 C L 74 18 115/67 90 L 11/21/19 00:15 74 22 H 92 L 11/21/19 00:09 92 L 11/20/19 23:45 78 20 121/76 90 L 11/20/19 23:30 36.7 C 84 22 H 124/74 91 L - Problem List Review Problem List Initiated/Reviewed/Updated: Yes - My Orders Last 24 Hours: My Active Orders 11/21/19 09:40 Convert IV to Saline Lock [OM.PC] Routine 11/21/19 09:43 Benzonatate [Tessalon Perles] 100 mg PO TID PRN Dextromethorphan/guaiFENesin [Robitussin DM] 10 ml PO Q4H PRN 11/21/19 10:00 Remdesivir (Eua) [Remdesivir (EUA)] 200 mg Sodium Chloride 0.9% [Normal Saline] 250 ml IV ONETIME 11/21/19 20:00 dexAMETHasone 6 mg PO Q24H 11/22/19 05:00 CBC W/O DIFF,HEMOGRAM [HEME] Timed (1) COMPREHENSIVE METABOLIC PN,CMP [CHEM] Timed INR,PT,PROTHROMBIN TIME [COAG] Timed 11/22/19 10:00 Remdesivir (Eua) [Remdesivir (EUA)] 100 mg Sodium Chloride 0.9% [Normal Saline] 100 ml IV Q24H - Plan Plan:: ASSESSMENT AND PLAN - COVID 19 WITH BILATERAL PNEUMONIA-complicated by acute respiratory failure with hypoxia. He is currently tachypneic and up to 4 L of supplemental oxygen. He was started on steroids last night. We talked about remdesivir and he is interested in using this medication as well. No obvious contraindications and he certainly is sick enough. We did talk about prone positioning but he is not sure he can lay on his abdomen. I believe he is at a high risk for deterioration and worsening respiratory failure. -Dexamethasone 6 mg every 24 hours -Remdesivir 200 mg x 1 and then 100 mg daily x4 more days (will check hepatic panel daily) -Encourage prone positioning if able -Continue empiric antibiotic coverage with IV Doxycycline 100mg bid and ceftriaxone 2 gram every 24 hours (procalcitonin moderately elevated) -Supplement oxygen if needed to keep oxygen saturation greater than 92% -inhalers as needed -Follow-up cultures -He is systemically anticoagulated Venous Stasis Ulcers-both lower legs affected. Wound care team is aware. -Routine wound care as recommended by Dr. Betancourt's wound care team Chronic atrial fibrillation-rate is currently controlled. He is systemically anticoagulated. -Continue home medications Asthma-no wheezing at this time. -Management as above Hypertension-blood pressure acceptable so far. -continue outpatient medications Maintenance issues - - DVT prophylaxis - Coumadin 2.5 mg po daily - GI prophylaxis - PPI - Nutrition - regular diet CODE STATUS - full code Disposition - anticipate discharge home after the hospital stay Simone Bueno M.D.
[2019-11-21] MEDS: guaiFENesin/Dextromethorphan 100-10 MG/5 ML Soln 10 ML Cup PO PRN ×3 (10:33→20:14)
[2019-11-21] MEDS: Doxycycline 100 MG in Sodium Chloride 0.9% 100 ML IV SCH ×2 (11:53→22:40)
[2019-11-21] MEDS ORDERED: Warfarin 2.5 MG Tab PO SCH (13:00)
[2019-11-21] MEDS: Benzonatate 100 MG Cap PO PRN ×2 (13:48→21:49)
[2019-11-21] MEDS: oxyCODONE 5 MG Tab PO PRN (20:14)
[2019-11-21] MEDS: Dexamethasone 4 MG Tab PO SCH (20:31)
[2019-11-21] MEDS: cefTRIAXone 2 GM in Sodium Chloride 0.9% 50 ML IV SCH (21:44)
[2019-11-22] MEDS: Albuterol/Ipratropium 4 GM Inhalation Spray INH SCH ×6 (00:05→20:04)
[2019-11-22] MEDS: oxyCODONE 5 MG Tab PO PRN ×5 (04:02→20:17)
[2019-11-22] MEDS: guaiFENesin/Dextromethorphan 100-10 MG/5 ML Soln 10 ML Cup PO PRN ×5 (04:02→20:17)
[2019-11-22] MEDS: Pantoprazole 40 MG Tab.CR PO SCH (08:12)
[2019-11-22] MEDS: Gabapentin 300 MG Cap PO SCH ×2 (08:12→20:05)
[2019-11-22] MEDS: Lisinopril 20 MG Tab PO SCH (08:13)
[2019-11-22] MEDS: Meloxicam 7.5 MG Tab PO SCH (08:13)
[2019-11-22] MEDS: Hydrochlorothiazide 25 MG Tab PO SCH (08:14)
[2019-11-22] MEDS: Benzonatate 100 MG Cap PO PRN ×2 (08:14→20:05)
[2019-11-22] MEDS: Formoterol/Mometasone 200-5 MCG 8.8 GM Inhaler IH SCH ×2 (08:15→20:06)
[2019-11-22] MEDS: Fluticasone Propionate Nasal Spray 16 GM Bottle NASBOTH SCH (08:15)
[2019-11-22] MEDS: Ondansetron 4 MG Tab.DIS PO PRN ×2 (08:25→20:33)
[2019-11-22] MEDS: REMDESIVIR (EUA) 100 MG in Sodium Chloride 0.9% 100 ML IV SCH (09:32)
[2019-11-22] MEDS ORDERED: LORazepam 2 MG/ML SDV IV PRN (09:49)
--- NOTE | 2019-11-22 09:51 | PCM.PN ---
- General Info Date of Service: 11/22/19 Subjective Update: No acute issues overnight. He is on high flow nasal cannula at 12 L. He feels pretty short of breath yet but slightly better than yesterday. Oxygenation has been stable over the past 24 hours. No fevers. Cough is a little better but still pretty bothersome. Kidney function is stable. He did have an episode of vomiting this morning. Functional Status: Reports: Pain Controlled, Tolerating Diet - Review of Systems General: Reports: Weakness. Denies: Fever Pulmonary: Reports: Shortness of Breath, Cough - Patient Data Vitals - Most Recent: Last Vital Signs Temp 36.9 C 11/21/19 23:18 Pulse 87 11/21/19 16:00 Resp 23 H 11/22/19 04:00 BP 129/49 L 11/22/19 08:13 Pulse Ox 91 L 11/22/19 04:00 Weight - Most Recent: 100.425 kg I&O - Last 24 Hours: Intake & Output 11/21/19 11/22/19 11/22/19 22:59 06:59 14:59 Intake Total 100 Balance 100 Lab Results Last 24 Hours: Laboratory Results - last 24 hr 11/21/19 11/22/19 11/22/19 Range/Units 22:40 04:10 04:10 WBC 13.4 H (4.5-11.0) K/uL RBC 4.41 (4.30-5.90) M/uL Hgb 13.1 (12.0-15.0) g/dL Hct 41.7 (40.0-54.0) % MCV 95 (80-98) fL MCH 30 (27-31) pg MCHC 31 L (32-36) % Plt Count 196 (150-400) K/uL PT 40.7 H (9.5-12.0) sec INR 3.83 H (0.80-1.20) Sodium (140-148) mmol/L Potassium (3.6-5.2) mmol/L Chloride (100-108) mmol/L Carbon Dioxide (21-32) mmol/L Anion Gap (5.0-14.0) mmol/L BUN (7-18) mg/dL Creatinine (0.8-1.3) mg/dL Est Cr Clr Drug Dosing mL/min Estimated GFR (MDRD) (>60) Glucose (74-106) mg/dL Calcium (8.5-10.1) mg/dL Total Bilirubin (0.2-1.0) mg/dL AST (15-37) U/L ALT (12-78) U/L Alkaline Phosphatase (46-116) U/L Total Protein (6.4-8.2) g/dL Albumin (3.4-5.0) g/dL Globulin (2.3-3.5) g/dL Albumin/Globulin Ratio (1.2-2.2) Procalcitonin 0.31 ng/mL 11/22/19 Range/Units 04:10 WBC (4.5-11.0) K/uL RBC (4.30-5.90) M/uL Hgb (12.0-15.0) g/dL Hct (40.0-54.0) % MCV (80-98) fL MCH (27-31) pg MCHC (32-36) % Plt Count (150-400) K/uL PT (9.5-12.0) sec INR (0.80-1.20) Sodium 139 L (140-148) mmol/L Potassium 4.6 (3.6-5.2) mmol/L Chloride 104 (100-108) mmol/L Carbon Dioxide 27 (21-32) mmol/L Anion Gap 12.6 (5.0-14.0) mmol/L BUN 45 H (7-18) mg/dL Creatinine 1.7 H (0.8-1.3) mg/dL Est Cr Clr Drug Dosing 41.90 mL/min Estimated GFR (MDRD) 40 L (>60) Glucose 114 H (74-106) mg/dL Calcium 8.3 L (8.5-10.1) mg/dL Total Bilirubin 0.3 (0.2-1.0) mg/dL AST 103 H (15-37) U/L ALT 42 (12-78) U/L Alkaline Phosphatase 71 (46-116) U/L Total Protein 6.4 (6.4-8.2) g/dL Albumin 2.3 L (3.4-5.0) g/dL Globulin 4.1 H (2.3-3.5) g/dL Albumin/Globulin Ratio 0.6 L (1.2-2.2) Procalcitonin ng/mL [place] Results Last 24 Hours: Microbiology 11/20/19 22:38 Aerobic Blood Culture - Preliminary Blood - Venous NO GROWTH AFTER 1 DAY Anaerobic Blood Culture - Preliminary NO GROWTH AFTER 1 DAY 11/20/19 22:30 Aerobic Blood Culture - Preliminary Blood - Venous - Lab Draw NO GROWTH AFTER 1 DAY Anaerobic Blood Culture - Preliminary NO GROWTH AFTER 1 DAY Med Orders - Current: Current Medications Acetaminophen (Tylenol) 650 mg PO Q4H PRN PRN Reason: Pain (Mild 1-3)/fever Last Admin: 11/21/19 00:37 Dose: 650 mg Documented by: Albuterol (Ventolin Hfa) 0 gm INH Q6HR PRN PRN Reason: Shortness of Breath Last Admin: 11/21/19 16:05 Dose: 2 puff Documented by: Albuterol/Ipratropium (Combivent Respimat) 0 gm INH Q4H [facility] Last Admin: 11/22/19 08:14 Dose: 2 puff Documented by: Benzonatate (Tessalon Perles) 100 mg PO TID PRN PRN Reason: Cough Last Admin: 11/22/19 08:14 Dose: 100 mg Documented by: Bisacodyl (Dulcolax) 5 mg PO DAILY PRN PRN Reason: Constipation Dexamethasone (Dexamethasone) 6 mg PO Q24H [facility] Last Admin: 11/21/19 20:31 Dose: 6 mg Documented by: Docusate Sodium (Colace) 100 mg PO BID PRN PRN Reason: Constipation Fluticasone Propionate (Flonase) 0 gm NASBOTH DAILY [facility] Last Admin: 11/22/19 08:15 Dose: 2 spray Documented by: Gabapentin (Neurontin) 300 mg PO BID [facility] Last Admin: 11/22/19 08:12 Dose: 300 mg Documented by: Guaifenesin/Dextromethorphan (Robitussin Dm) 10 ml PO Q4H PRN PRN Reason: Cough Last Admin: 11/22/19 08:14 Dose: 10 ml Documented by: Hydrochlorothiazide (Hydrochlorothiazide) 25 mg PO DAILY [facility] Last Admin: 11/22/19 08:14 Dose: 25 mg Documented by: Doxycycline Hyclate 100 mg/ (Sodium Chloride) 100 mls @ 100 mls/hr IV Q12H [facility] Last Admin: 11/21/19 22:40 Dose: 100 mls/hr Documented by: Ceftriaxone Sodium 2 gm/ (Sodium Chloride) 50 mls @ 100 mls/hr IV Q24H [facility] Last Admin: 11/21/19 21:44 Dose: 100 mls/hr Documented by: Remdesivir 100 mg/ Sodium (Chloride) 100 mls @ 100 mls/hr IV Q24H [facility] Last Admin: 11/22/19 09:32 Dose: 100 mls/hr Documented by: Lisinopril (Prinivil) 40 mg PO DAILY [facility] Last Admin: 11/22/19 08:13 Dose: 40 mg Documented by: Lorazepam (Ativan) 1 mg IV Q6H PRN PRN Reason: Nausea/Vomiting Melatonin (Melatonin) 6 mg PO BEDTIME PRN PRN Reason: Insomnia Meloxicam (Mobic) 15 mg PO DAILY [facility] Last Admin: 11/22/19 08:13 Dose: 15 mg Documented by: Mometasone Furoate/Formoterol Fumar (Dulera 200-5 Mcg) 2 puff IH BID [facility] Last Admin: 11/22/19 08:15 Dose: 2 puff Documented by: Morphine Sulfate (Morphine) 2 mg IVPUSH Q2H PRN PRN Reason: Pain (severe 7-10) Ondansetron HCl (Zofran Odt) 4 mg PO Q6H PRN PRN Reason: Nausea able to take PO Last Admin: 11/22/19 08:25 Dose: 4 mg Documented by: Oxycodone HCl (Oxycodone) 5 mg PO Q4H PRN PRN Reason: Pain (moderate 4-6) Last Admin: 11/22/19 08:13 Dose: 5 mg Documented by: Pantoprazole Sodium (Protonix) 40 mg PO ACBREAKFAST [facility] Last Admin: 11/22/19 08:12 Dose: 40 mg Documented by: Tamsulosin HCl (Flomax) 0.4 mg PO DAILY [facility] Last Admin: 11/21/19 08:50 Dose: 0.4 mg Documented by: Discontinued Medications Dexamethasone (Dexamethasone) 6 mg PO ONETIME ONE Stop: 11/20/19 20:30 Last Admin: 11/20/19 20:48 Dose: 6 mg Documented by: Sodium Chloride (Normal Saline) 1,000 mls @ 999 mls/hr IV ASDIRECTED [facility] Last Admin: 11/20/19 20:48 Dose: 999 mls/hr Documented by: Ceftriaxone Sodium 2 gm/ (Sodium Chloride) 50 mls @ 100 mls/hr IV Q24H [facility] Last Admin: 11/20/19 22:44 Dose: 100 mls/hr Documented by: Doxycycline Hyclate 100 mg/ (Sodium Chloride) 100 mls @ 100 mls/hr IV Q12H [facility] Last Admin: 11/21/19 00:05 Dose: 100 mls/hr Documented by: Sodium Chloride (Normal Saline) 1,000 mls @ 100 mls/hr IV ASDIRECTED [facility] Remdesivir 200 mg/ Sodium (Chloride) 250 mls @ 250 mls/hr IV ONETIME ONE Stop: 11/21/19 11:29 Last Admin: 11/21/19 10:32 Dose: 250 mls/hr Documented by: Warfarin Sodium (Coumadin) 2.5 mg PO DAILY@1300 [facility] Last Admin: 11/21/19 12:30 Dose: 2.5 mg Documented by: - Exam Quality Assessment: Supplemental Oxygen General: Alert, Oriented, Cooperative, No Acute Distress Lungs: Crackles (mild right lower lung. Mild/moderate diffuse left lung ). No: Normal Respiratory Effort (mild increase in work of breathing ), Wheezing Cardiovascular: Regular Rate, Regular Rhythm GI/Abdominal Exam: Soft, No Distention Skin: Warm, Dry Psy/Mental Status: Alert, Normal Affect Sepsis Event Note - Evaluation Sepsis Screening Result: Sepsis Risk - Focused Exam Vital Signs: Vital Signs Temp Resp BP BP Pulse Ox 11/22/19 08:13 129/49 L 11/22/19 04:00 23 H 141/87 H 91 L 11/21/19 23:18 36.9 C 30 H 147/80 H 92 L - Problem List Review Problem List Initiated/Reviewed/Updated: Yes - My Orders Last 24 Hours: My Active Orders 11/21/19 09:40 Convert IV to Saline Lock [OM.PC] Routine 11/21/19 09:43 Benzonatate [Tessalon Perles] 100 mg PO TID PRN Dextromethorphan/guaiFENesin [Robitussin DM] 10 ml PO Q4H PRN 11/21/19 20:00 dexAMETHasone 6 mg PO Q24H 10/10/20 09:48 Transfer Patient (Change bed) [ADT] Routine 11/22/19 09:49 LORazepam [Ativan] 0.5 mg IV Q6H PRN 11/22/19 10:00 Remdesivir (Eua) [Remdesivir (EUA)] 100 mg Sodium Chloride 0.9% [Normal Salin e] 100 ml IV Q24H 11/23/19 05:00 CBC W/O DIFF,HEMOGRAM [HEME] Timed (1) COMPREHENSIVE METABOLIC PN,CMP [CHEM] Timed INR,PT,PROTHROMBIN TIME [COAG] Timed MAGNESIUM [CHEM] Timed 11/23/19 05:11 C-REACTIVE PROTEIN [CHEM] AM D-DIMER QUANTITATIVE [COAG] AM LACTATE DEHYDROGENASE,LDH [CHEM] AM PROCALCITONIN [CHEM] AM - Plan Plan:: ASSESSMENT AND PLAN - COVID 19 WITH BILATERAL PNEUMONIA-complicated by acute respiratory failure with hypoxia. He is requiring 10 to 12 L of supplemental oxygen but this has been stable over the past 24 hours. Symptomatically he feels a little better. No fevers. Vital signs are otherwise stable. Tolerating medication so far. -Dexamethasone 6 mg every 24 hours -Remdesivir 200 mg x 1 and then 100 mg daily x4 more days (will check hepatic panel daily) -Encourage prone positioning as able -Recheck d-dimer, LDH, CRP and procalcitonin in the morning -Continue empiric antibiotic coverage with IV Doxycycline 100mg bid and ceftriaxone 2 gram every 24 hours (procalcitonin moderately elevated) -Supplement oxygen if needed to keep oxygen saturation greater than 92% -inhalers as needed -Follow-up cultures (negative so far) -He is systemically anticoagulated Venous Stasis Ulcers-both lower legs affected. Wound care team is aware. -Routine wound care as recommended by Dr. Betancourt's wound care team Chronic atrial fibrillation-rate is currently controlled. He is systemically anticoagulated. INR is elevated today. -Continue rate control -Hold warfarin today and recheck INR in the morning Asthma-no wheezing at this time. -Management as above Hypertension-blood pressure acceptable so far. -continue outpatient medications Maintenance issues - - DVT prophylaxis - Coumadin (holding dose today) - GI prophylaxis - PPI - Nutrition - regular diet CODE STATUS - full code Disposition - anticipate discharge home after the hospital stay Simone Bueno M.D.
[2019-11-22] MEDS: Doxycycline 100 MG in Sodium Chloride 0.9% 100 ML IV SCH ×2 (11:08→22:25)
[2019-11-22] MEDS: Tamsulosin 0.4 MG Cap.ER PO SCH (11:08)
[2019-11-22] MEDS: Dexamethasone 4 MG Tab PO SCH (20:05)
[2019-11-22] MEDS: cefTRIAXone 2 GM in Sodium Chloride 0.9% 50 ML IV SCH (21:42)
[2019-11-23] MEDS: oxyCODONE 5 MG Tab PO PRN ×2 (00:20→23:11)
[2019-11-23] MEDS: Albuterol/Ipratropium 4 GM Inhalation Spray INH SCH ×6 (00:20→20:04)
[2019-11-23] MEDS: guaiFENesin/Dextromethorphan 100-10 MG/5 ML Soln 10 ML Cup PO PRN ×3 (00:20→22:03)
[2019-11-23] MEDS: Ondansetron 4 MG Tab.DIS PO PRN ×4 (04:27→23:11)
[2019-11-23] MEDS: Benzonatate 100 MG Cap PO PRN ×2 (04:27→22:04)
[2019-11-23] MEDS: Acetaminophen 325 MG Tab PO PRN ×3 (04:27→20:45)
[2019-11-23] MEDS ORDERED: Phytonadione 5 MG Tab PO ONE (09:00)
[2019-11-23] MEDS: Pantoprazole 40 MG Tab.CR PO SCH (09:06)
[2019-11-23] MEDS: REMDESIVIR (EUA) 100 MG in Sodium Chloride 0.9% 100 ML IV SCH (09:07)
[2019-11-23] MEDS: Meloxicam 7.5 MG Tab PO SCH (09:10)
[2019-11-23] MEDS: Tamsulosin 0.4 MG Cap.ER PO SCH (09:10)
[2019-11-23] MEDS: Lisinopril 20 MG Tab PO SCH (09:11)
[2019-11-23] MEDS ORDERED: Ondansetron 4 MG/2 ML SDV IVPUSH PRN (09:12)
[2019-11-23] MEDS: Gabapentin 300 MG Cap PO SCH ×2 (09:12→20:04)
[2019-11-23] MEDS ORDERED: LORazepam 0.5 MG Tab PO PRN (09:12)
[2019-11-23] MEDS: Hydrochlorothiazide 25 MG Tab PO SCH (09:12)
[2019-11-23] MEDS: Formoterol/Mometasone 200-5 MCG 8.8 GM Inhaler IH SCH ×2 (09:13→20:25)
[2019-11-23] MEDS: Fluticasone Propionate Nasal Spray 16 GM Bottle NASBOTH SCH (09:14)
[2019-11-23] MEDS: Doxycycline 100 MG in Sodium Chloride 0.9% 100 ML IV SCH ×2 (10:36→23:11)
--- NOTE | 2019-11-23 11:00 | PCM.PN ---
- General Info Date of Service: 11/23/19 Subjective Update: No acute events overnight. Oxygenation is stable but he continues to require 12 L of supplemental oxygen. Oxygenation is moderately better when he is in the prone position. He continues to have nausea but has not had any vomiting. Appetite is a little better today. He looks better today. No complaints of chest pain or myalgias. He has not had any fevers. He seems to be tolerating the remdesivir so far. Laboratory studies with the exception of LDH are all looking better today. Functional Status: Reports: Pain Controlled, Tolerating Diet - Review of Systems General: Reports: Weakness. Denies: Fever Pulmonary: Reports: Shortness of Breath - Patient Data Vitals - Most Recent: Last Vital Signs Temp 36.6 C 11/23/19 09:00 Pulse 64 11/23/19 09:00 Resp 18 11/23/19 09:00 BP 116/68 11/23/19 09:11 Pulse Ox 93 L 11/23/19 09:00 Weight - Most Recent: 100.425 kg I&O - Last 24 Hours: Intake & Output 11/22/19 11/23/19 11/23/19 22:59 06:59 14:59 Intake Total 650 Balance 650 Lab Results Last 24 Hours: Laboratory Results - last 24 hr 11/23/19 11/23/19 11/23/19 Range/Units 04:10 04:10 04:10 WBC 12.2 H (4.5-11.0) K/uL RBC 3.91 L (4.30-5.90) M/uL Hgb 12.2 (12.0-15.0) g/dL Hct 36.5 L (40.0-54.0) % MCV 93 (80-98) fL MCH 31 (27-31) pg MCHC 33 (32-36) % Plt Count 106 L (150-400) K/uL PT 51.5 H (9.5-12.0) sec INR 4.87 H* (0.80-1.20) D-Dimer, Quantitative (0.0-400.0) ng/mL Sodium 141 (140-148) mmol/L Potassium 5.0 (3.6-5.2) mmol/L Chloride 106 (100-108) mmol/L Carbon Dioxide 28 (21-32) mmol/L Anion Gap 7.2 (5.0-14.0) mmol/L BUN 63 H (7-18) mg/dL Creatinine 1.6 H (0.8-1.3) mg/dL Est Cr Clr Drug Dosing 44.52 mL/min Estimated GFR (MDRD) 42 L (>60) Glucose 130 H (74-106) mg/dL Calcium 8.5 (8.5-10.1) mg/dL Magnesium 2.2 (1.8-2.4) mg/dL Total Bilirubin 0.4 (0.2-1.0) mg/dL AST 103 H (15-37) U/L ALT 47 (12-78) U/L Alkaline Phosphatase 72 (46-116) U/L Lactate Dehydrogenase (85-227) U/L C-Reactive Protein (0.0-0.3) mg/dL Total Protein 6.1 L (6.4-8.2) g/dL Albumin 2.1 L (3.4-5.0) g/dL Globulin 4.0 H (2.3-3.5) g/dL Albumin/Globulin Ratio 0.5 L (1.2-2.2) Procalcitonin ng/mL 11/23/19 11/23/19 11/23/19 Range/Units 04:10 04:10 04:10 WBC (4.5-11.0) K/uL RBC (4.30-5.90) M/uL Hgb (12.0-15.0) g/dL Hct (40.0-54.0) % MCV (80-98) fL MCH (27-31) pg MCHC (32-36) % Plt Count (150-400) K/uL PT (9.5-12.0) sec INR (0.80-1.20) D-Dimer, Quantitative 2240 H (0.0-400.0) ng/mL Sodium (140-148) mmol/L Potassium (3.6-5.2) mmol/L Chloride (100-108) mmol/L Carbon Dioxide (21-32) mmol/L Anion Gap (5.0-14.0) mmol/L BUN (7-18) mg/dL Creatinine (0.8-1.3) mg/dL Est Cr Clr Drug Dosing mL/min Estimated GFR (MDRD) (>60) Glucose (74-106) mg/dL Calcium (8.5-10.1) mg/dL Magnesium (1.8-2.4) mg/dL Total Bilirubin (0.2-1.0) mg/dL AST (15-37) U/L ALT (12-78) U/L Alkaline Phosphatase (46-116) U/L Lactate Dehydrogenase 620 H (85-227) U/L C-Reactive Protein 7.45 H (0.0-0.3) mg/dL Total Protein (6.4-8.2) g/dL Albumin (3.4-5.0) g/dL Globulin (2.3-3.5) g/dL Albumin/Globulin Ratio (1.2-2.2) Procalcitonin 0.22 ng/mL [facility] Results Last 24 Hours: Microbiology 11/20/19 22:38 Aerobic Blood Culture - Preliminary Blood - Venous NO GROWTH AFTER 2 DAYS Anaerobic Blood Culture - Preliminary NO GROWTH AFTER 2 DAYS 11/20/19 22:30 Aerobic Blood Culture - Preliminary Blood - Venous - Lab Draw NO GROWTH AFTER 2 DAYS Anaerobic Blood Culture - Preliminary NO GROWTH AFTER 2 DAYS Med Orders - Current: Current Medications Acetaminophen (Tylenol) 650 mg PO Q4H PRN PRN Reason: Pain (Mild 1-3)/fever Last Admin: 11/23/19 04:27 Dose: 650 mg Documented by: Albuterol (Ventolin Hfa) 0 gm INH Q6HR PRN PRN Reason: Shortness of Breath Last Admin: 11/21/19 16:05 Dose: 2 puff Documented by: Albuterol/Ipratropium (Combivent Respimat) 0 gm INH Q4H [facility] Last Admin: 11/23/19 09:09 Dose: 2 puff Documented by: Benzonatate (Tessalon Perles) 100 mg PO TID PRN PRN Reason: Cough Last Admin: 11/23/19 04:27 Dose: 100 mg Documented by: Bisacodyl (Dulcolax) 5 mg PO DAILY PRN PRN Reason: Constipation Dexamethasone (Dexamethasone) 6 mg PO Q24H [facility] Last Admin: 11/22/19 20:05 Dose: 6 mg Documented by: Docusate Sodium (Colace) 100 mg PO BID PRN PRN Reason: Constipation Fluticasone Propionate (Flonase) 0 gm NASBOTH DAILY [facility] Last Admin: 11/23/19 09:14 Dose: 2 spray Documented by: Gabapentin (Neurontin) 300 mg PO BID [facility] Last Admin: 11/23/19 09:12 Dose: 300 mg Documented by: Guaifenesin/Dextromethorphan (Robitussin Dm) 10 ml PO Q4H PRN PRN Reason: Cough Last Admin: 11/23/19 04:27 Dose: 10 ml Documented by: Hydrochlorothiazide (Hydrochlorothiazide) 25 mg PO DAILY [facility] Last Admin: 11/23/19 09:12 Dose: 25 mg Documented by: Doxycycline Hyclate 100 mg/ (Sodium Chloride) 100 mls @ 100 mls/hr IV Q12H [facility] Last Admin: 11/23/19 10:36 Dose: 100 mls/hr Documented by: Ceftriaxone Sodium 2 gm/ (Sodium Chloride) 50 mls @ 100 mls/hr IV Q24H [facility] Last Admin: 11/22/19 21:42 Dose: 100 mls/hr Documented by: Remdesivir 100 mg/ Sodium (Chloride) 100 mls @ 100 mls/hr IV Q24H [facility] Stop: 11/25/19 10:59 Last Admin: 11/23/19 09:07 Dose: 100 mls/hr Documented by: Lisinopril (Prinivil) 40 mg PO DAILY [facility] Last Admin: 11/23/19 09:11 Dose: 40 mg Documented by: Lorazepam (Ativan) 0.5 mg IV Q6H PRN PRN Reason: Nausea/Vomiting Lorazepam (Ativan) 0.5 mg PO Q4H PRN PRN Reason: Nausea Melatonin (Melatonin) 6 mg PO BEDTIME PRN PRN Reason: Insomnia Meloxicam (Mobic) 15 mg PO DAILY [facility] Last Admin: 11/23/19 09:10 Dose: 15 mg Documented by: Mometasone Furoate/Formoterol Fumar (Dulera 200-5 Mcg) 2 puff IH BID [facility] Last Admin: 11/23/19 09:13 Dose: 2 puff Documented by: Morphine Sulfate (Morphine) 2 mg IVPUSH Q2H PRN PRN Reason: Pain (severe 7-10) Ondansetron HCl (Zofran Odt) 4 mg PO Q4H PRN PRN Reason: Nausea able to take PO Ondansetron HCl (Zofran) 4 mg IVPUSH Q4H PRN PRN Reason: Nausea/Vomiting Oxycodone HCl (Oxycodone) 5 mg PO Q4H PRN PRN Reason: Pain (moderate 4-6) Last Admin: 11/23/19 00:20 Dose: 5 mg Documented by: Pantoprazole Sodium (Protonix) 40 mg PO ACBREAKFAST [facility] Last Admin: 11/23/19 09:06 Dose: 40 mg Documented by: Tamsulosin HCl (Flomax) 0.4 mg PO DAILY [facility] Last Admin: 11/23/19 09:10 Dose: 0.4 mg Documented by: Discontinued Medications Dexamethasone (Dexamethasone) 6 mg PO ONETIME ONE Stop: 11/20/19 20:30 Last Admin: 11/20/19 20:48 Dose: 6 mg Documented by: Sodium Chloride (Normal Saline) 1,000 mls @ 999 mls/hr IV ASDIRECTED [facility] Last Admin: 11/20/19 20:48 Dose: 999 mls/hr Documented by: Ceftriaxone Sodium 2 gm/ (Sodium Chloride) 50 mls @ 100 mls/hr IV Q24H [facility] Last Admin: 11/20/19 22:44 Dose: 100 mls/hr Documented by: Doxycycline Hyclate 100 mg/ (Sodium Chloride) 100 mls @ 100 mls/hr IV Q12H [facility] Last Admin: 11/21/19 00:05 Dose: 100 mls/hr Documented by: Sodium Chloride (Normal Saline) 1,000 mls @ 100 mls/hr IV ASDIRECTED [facility] Remdesivir 200 mg/ Sodium (Chloride) 250 mls @ 250 mls/hr IV ONETIME ONE Stop: 11/21/19 11:29 Last Admin: 11/21/19 10:32 Dose: 250 mls/hr Documented by: Lorazepam (Ativan) 1 mg IV Q6H PRN PRN Reason: Nausea/Vomiting Ondansetron HCl (Zofran Odt) 4 mg PO Q6H PRN PRN Reason: Nausea able to take PO Last Admin: 11/23/19 09:09 Dose: 4 mg Documented by: Phytonadione (Mephyton) 1.25 mg PO ONETIME ONE Stop: 11/23/19 09:01 Last Admin: 11/23/19 09:12 Dose: 1.25 mg Documented by: Warfarin Sodium (Coumadin) 2.5 mg PO DAILY@1300 [facility] Last Admin: 11/21/19 12:30 Dose: 2.5 mg Documented by: - Exam Quality Assessment: Supplemental Oxygen General: Alert, Oriented, Cooperative, No Acute Distress Lungs: Normal Respiratory Effort, Crackles (moderate on left side, mild right lower chest ) Cardiovascular: Regular Rate, Regular Rhythm GI/Abdominal Exam: Soft, No Distention Extremities: Other (both lower legs with coban compression wraps). No: Increased Warmth Skin: Warm, Dry Psy/Mental Status: Alert, Normal Affect Sepsis Event Note - Evaluation Sepsis Screening Result: No Definite Risk - Focused Exam Vital Signs: Vital Signs Temp Pulse Resp BP BP Pulse Ox 11/23/19 09:11 116/68 11/23/19 09:00 36.6 C 64 18 116/68 93 L 11/23/19 07:00 36.6 C 53 L 16 112/62 93 L 11/23/19 06:00 15 99/52 L 92 L 11/23/19 04:00 36.4 C 17 104/52 L 93 L 11/23/19 02:00 36.1 C 19 109/58 L 90 L 11/23/19 00:00 36.3 C 15 102/44 L 94 L - Problem List Review Problem List Initiated/Reviewed/Updated: Yes - My Orders Last 24 Hours: My Active Orders 11/22/19 10:00 Remdesivir (Eua) [Remdesivir (EUA)] 100 mg Sodium Chloride 0.9% [Normal Saline] 100 ml IV Q24H 11/23/19 09:12 LORazepam [Ativan] 0.5 mg PO Q4H PRN Ondansetron [Zofran] 4 mg IVPUSH Q4H PRN 11/23/19 09:13 Ondansetron [Zofran ODT] 4 mg PO Q4H PRN 11/24/19 05:00 CBC W/O DIFF,HEMOGRAM [HEME] Timed (1) COMPREHENSIVE METABOLIC PN,CMP [CHEM] Timed INR,PT,PROTHROMBIN TIME [COAG] Timed - Plan Plan:: ASSESSMENT AND PLAN - COVID 19 WITH BILATERAL PNEUMONIA-complicated by acute respiratory failure with hypoxia. He is requiring 12 L of supplemental oxygen but looks and feels a little better today. D-dimer and CRP have improved since admission, LDH slightly higher today. Still quite sick but appears to be slowly improving. -Dexamethasone 6 mg every 24 hours -Remdesivir 200 mg x 1 and then 100 mg daily x4 days (will check hepatic panel daily) -Encourage prone positioning as able -Recheck d-dimer, LDH, CRP and procalcitonin every other day -Continue empiric antibiotic coverage with IV Doxycycline 100mg bid and ceftriaxone 2 gram every 24 hours (procalcitonin remains moderately elevated) -Supplement oxygen if needed to keep oxygen saturation greater than 92% -inhalers as needed -Follow-up cultures (negative so far) -He is systemically anticoagulated Venous Stasis Ulcers-both lower legs affected. Wound care team is aware. -Routine wound care as recommended by Dr. Betancourt's wound care team Chronic atrial fibrillation-rate is currently controlled. He is systemically anticoagulated. INR is elevated further today. -Continue rate control -Small dose of oral vitamin K today -Hold warfarin today and recheck INR in the morning Asthma-no wheezing at this time. -Management as above Hypertension-blood pressure acceptable so far. -continue outpatient medications Maintenance issues - - DVT prophylaxis - Coumadin (holding dose today) - GI prophylaxis - PPI - Nutrition - regular diet CODE STATUS - full code Disposition - anticipate discharge home after the hospital stay Simone Bueno M.D.
[2019-11-23] MEDS: Dexamethasone 4 MG Tab PO SCH (20:04)
[2019-11-23] MEDS: cefTRIAXone 2 GM in Sodium Chloride 0.9% 50 ML IV SCH (22:03)
[2019-11-24] MEDS: Albuterol/Ipratropium 4 GM Inhalation Spray INH SCH ×7 (00:12→23:34)
[2019-11-24] MEDS: guaiFENesin/Dextromethorphan 100-10 MG/5 ML Soln 10 ML Cup PO PRN ×3 (04:34→20:44)
[2019-11-24] MEDS: oxyCODONE 5 MG Tab PO PRN (04:34)
[2019-11-24] MEDS: Ondansetron 4 MG Tab.DIS PO PRN ×3 (04:34→16:24)
[2019-11-24] MEDS ORDERED: Phytonadione 5 MG Tab PO ONE (08:30)
[2019-11-24] MEDS: Pantoprazole 40 MG Tab.CR PO SCH (08:51)
[2019-11-24] MEDS: Lisinopril 20 MG Tab PO SCH (08:52)
[2019-11-24] MEDS: Gabapentin 300 MG Cap PO SCH ×2 (08:53→20:44)
[2019-11-24] MEDS: Tamsulosin 0.4 MG Cap.ER PO SCH (08:53)
[2019-11-24] MEDS: Fluticasone Propionate Nasal Spray 16 GM Bottle NASBOTH SCH (08:54)
[2019-11-24] MEDS: Meloxicam 7.5 MG Tab PO SCH (08:54)
[2019-11-24] MEDS: Formoterol/Mometasone 200-5 MCG 8.8 GM Inhaler IH SCH ×2 (08:54→20:59)
[2019-11-24] MEDS: Acetaminophen 325 MG Tab PO PRN ×2 (09:06→20:44)
[2019-11-24] MEDS: REMDESIVIR (EUA) 100 MG in Sodium Chloride 0.9% 100 ML IV SCH (10:24)
--- NOTE | 2019-11-24 10:30 | PCM.PN ---
- General Info Date of Service: 11/24/19 Admission Dx/Problem (Free Text): 1. Pneumonia due to COVID 19 Subjective Update: Assuming care of Mr. Almanza this AM. Patient was seen with nurse of the shift - SHAHEEN Yee. Patient denies any significant changes and notes that his breathing is "ok". SHAHEEN Yee notes that the patient is needing 12 L NC oxygen with occasional bursts of 10 L per facemask after exertion. The patient has not noted any increased work of breathing. No other signs of vital instability are noted by the RN. Patient is asking for help with his mail. Functional Status: Reports: Pain Controlled, Other (Still having some nausea and is on clears at present time - thus far is tolerating with Zofran). Denies: Tolerating Diet - Review of Systems General: Reports: Malaise HEENT: Reports: No Symptoms Pulmonary: Reports: Shortness of Breath, Cough Cardiovascular: Reports: No Symptoms Gastrointestinal: Reports: Nausea, Vomiting. Denies: No Symptoms Genitourinary: Reports: No Symptoms Musculoskeletal: Reports: No Symptoms Skin: Reports: No Symptoms Neurological: Reports: No Symptoms Psychiatric: Reports: No Symptoms - Patient Data Vitals - Most Recent: Last Vital Signs Temp 97.1 F 11/24/19 09:00 Pulse 69 11/23/19 17:00 Resp 24 H 11/24/19 09:00 BP 124/71 11/24/19 09:00 Pulse Ox 92 L 11/24/19 09:00 Weight - Most Recent: 220 lb I&O - Last 24 Hours: Intake & Output 11/23/19 11/24/19 11/24/19 22:59 06:59 14:59 Intake Total 280 750 Balance 280 750 Lab Results Last 24 Hours: Laboratory Results - last 24 hr 11/24/19 11/24/19 11/24/19 Range/Units 04:55 04:55 04:55 WBC 15.5 H (4.5-11.0) K/uL RBC 4.16 L (4.30-5.90) M/uL Hgb 13.1 (12.0-15.0) g/dL Hct 38.9 L (40.0-54.0) % MCV 94 (80-98) fL MCH 32 H (27-31) pg MCHC 34 (32-36) % Plt Count 90 L (150-400) K/uL PT 59.3 H (9.5-12.0) sec INR 5.63 H* (0.80-1.20) Sodium 142 (140-148) mmol/L Potassium 5.2 (3.6-5.2) mmol/L Chloride 108 (100-108) mmol/L Carbon Dioxide 21 (21-32) mmol/L Anion Gap 12.6 (5.0-14.0) mmol/L BUN 75 H (7-18) mg/dL Creatinine 2.1 H (0.8-1.3) mg/dL Est Cr Clr Drug Dosing 33.92 mL/min Estimated GFR (MDRD) 31 L (>60) Glucose 124 H (74-106) mg/dL Calcium 8.7 (8.5-10.1) mg/dL Total Bilirubin 0.7 D (0.2-1.0) mg/dL AST 124 H (15-37) U/L ALT 67 (12-78) U/L Alkaline Phosphatase 95 (46-116) U/L Total Protein 6.5 (6.4-8.2) g/dL Albumin 2.3 L (3.4-5.0) g/dL Globulin 4.2 H (2.3-3.5) g/dL Albumin/Globulin Ratio 0.6 L (1.2-2.2) Clay Results Last 24 Hours: Microbiology 11/20/19 22:30 Aerobic Blood Culture - Preliminary Blood - Venous - Lab Draw NO GROWTH AFTER 3 DAYS Anaerobic Blood Culture - Preliminary NO GROWTH AFTER 3 DAYS 11/20/19 22:38 Aerobic Blood Culture - Preliminary Blood - Venous NO GROWTH AFTER 3 DAYS Anaerobic Blood Culture - Preliminary NO GROWTH AFTER 3 DAYS Med Orders - Current: Current Medications Acetaminophen (Tylenol) 650 mg PO Q4H PRN PRN Reason: Pain (Mild 1-3)/fever Last Admin: 11/24/19 09:06 Dose: 650 mg Documented by: Albuterol (Ventolin Hfa) 0 gm INH Q6HR PRN PRN Reason: Shortness of Breath Last Admin: 11/21/19 16:05 Dose: 2 puff Documented by: Albuterol/Ipratropium (Combivent Respimat) 0 gm INH Q4H [facility] Last Admin: 11/24/19 08:51 Dose: 2 puff Documented by: Benzonatate (Tessalon Perles) 100 mg PO TID PRN PRN Reason: Cough Last Admin: 11/23/19 22:04 Dose: 100 mg Documented by: Bisacodyl (Dulcolax) 5 mg PO DAILY PRN PRN Reason: Constipation Dexamethasone (Dexamethasone) 6 mg PO Q24H [facility] Last Admin: 11/23/19 20:04 Dose: 6 mg Documented by: Docusate Sodium (Colace) 100 mg PO BID PRN PRN Reason: Constipation Fluticasone Propionate (Flonase) 0 gm NASBOTH DAILY [facility] Last Admin: 11/24/19 08:54 Dose: 2 spray Documented by: Gabapentin (Neurontin) 300 mg PO BID [facility] Last Admin: 11/24/19 08:53 Dose: 300 mg Documented by: Guaifenesin/Dextromethorphan (Robitussin Dm) 10 ml PO Q4H PRN PRN Reason: Cough Last Admin: 11/24/19 08:44 Dose: 10 ml Documented by: Hydrochlorothiazide (Hydrochlorothiazide) 25 mg PO DAILY [facility] Last Admin: 11/23/19 09:12 Dose: 25 mg Documented by: Doxycycline Hyclate 100 mg/ (Sodium Chloride) 100 mls @ 100 mls/hr IV Q12H [facility] Last Admin: 11/23/19 23:11 Dose: 100 mls/hr Documented by: Ceftriaxone Sodium 2 gm/ (Sodium Chloride) 50 mls @ 100 mls/hr IV Q24H [facility] Last Admin: 11/23/19 22:03 Dose: 100 mls/hr Documented by: Remdesivir 100 mg/ Sodium (Chloride) 100 mls @ 100 mls/hr IV Q24H [facility] Stop: 11/25/19 10:59 Last Admin: 11/23/19 09:07 Dose: 100 mls/hr Documented by: Lisinopril (Prinivil) 40 mg PO DAILY [facility] Last Admin: 11/24/19 08:52 Dose: 40 mg Documented by: Lorazepam (Ativan) 0.5 mg IV Q6H PRN PRN Reason: Nausea/Vomiting Lorazepam (Ativan) 0.5 mg PO Q4H PRN PRN Reason: Nausea Melatonin (Melatonin) 6 mg PO BEDTIME PRN PRN Reason: Insomnia Meloxicam (Mobic) 15 mg PO DAILY [facility] Last Admin: 11/24/19 08:54 Dose: 15 mg Documented by: Mometasone Furoate/Formoterol Fumar (Dulera 200-5 Mcg) 2 puff IH BID [facility] Last Admin: 11/24/19 08:54 Dose: 2 puff Documented by: Morphine Sulfate (Morphine) 2 mg IVPUSH Q2H PRN PRN Reason: Pain (severe 7-10) Ondansetron HCl (Zofran Odt) 4 mg PO Q4H PRN PRN Reason: Nausea able to take PO Last Admin: 11/24/19 08:45 Dose: 4 mg Documented by: Ondansetron HCl (Zofran) 4 mg IVPUSH Q4H PRN PRN Reason: Nausea/Vomiting Oxycodone HCl (Oxycodone) 5 mg PO Q4H PRN PRN Reason: Pain (moderate 4-6) Last Admin: 11/24/19 04:34 Dose: 5 mg Documented by: Pantoprazole Sodium (Protonix) 40 mg PO ACBREAKFAST [facility] Last Admin: 11/24/19 08:51 Dose: 40 mg Documented by: Tamsulosin HCl (Flomax) 0.4 mg PO DAILY [facility] Last Admin: 11/24/19 08:53 Dose: 0.4 mg Documented by: Discontinued Medications Dexamethasone (Dexamethasone) 6 mg PO ONETIME ONE Stop: 11/20/19 20:30 Last Admin: 11/20/19 20:48 Dose: 6 mg Documented by: Sodium Chloride (Normal Saline) 1,000 mls @ 999 mls/hr IV ASDIRECTED [facility] Last Admin: 11/20/19 20:48 Dose: 999 mls/hr Documented by: Ceftriaxone Sodium 2 gm/ (Sodium Chloride) 50 mls @ 100 mls/hr IV Q24H [facility] Last Admin: 11/20/19 22:44 Dose: 100 mls/hr Documented by: Doxycycline Hyclate 100 mg/ (Sodium Chloride) 100 mls @ 100 mls/hr IV Q12H [facility] Last Admin: 11/21/19 00:05 Dose: 100 mls/hr Documented by: Sodium Chloride (Normal Saline) 1,000 mls @ 100 mls/hr IV ASDIRECTED [facility] Remdesivir 200 mg/ Sodium (Chloride) 250 mls @ 250 mls/hr IV ONETIME ONE Stop: 11/21/19 11:29 Last Admin: 11/21/19 10:32 Dose: 250 mls/hr Documented by: Lorazepam (Ativan) 1 mg IV Q6H PRN PRN Reason: Nausea/Vomiting Ondansetron HCl (Zofran Odt) 4 mg PO Q6H PRN PRN Reason: Nausea able to take PO Last Admin: 11/23/19 09:09 Dose: 4 mg Documented by: Phytonadione (Mephyton) 1.25 mg PO ONETIME ONE Stop: 11/23/19 09:01 Last Admin: 11/23/19 09:12 Dose: 1.25 mg Documented by: Phytonadione (Mephyton) 2.5 mg PO ONETIME ONE Stop: 11/24/19 08:31 Last Admin: 11/24/19 08:51 Dose: 2.5 mg Documented by: Warfarin Sodium (Coumadin) 2.5 mg PO DAILY@1300 [facility] Last Admin: 11/21/19 12:30 Dose: 2.5 mg Documented by: - Exam Quality Assessment: Supplemental Oxygen (12 L NC oxygen) General: Alert, Oriented, Cooperative, No Acute Distress Lungs: Crackles (bilateral crackles to RML, RLL, LLL, lower SANDIE) Cardiovascular: Regular Rate, Regular Rhythm, No Murmurs GI/Abdominal Exam: Normal Bowel Sounds Back Exam: Normal Inspection Psy/Mental Status: Alert, Normal Affect, Normal Mood Sepsis Event Note - Evaluation Sepsis Screening Result: No Definite Risk - Focused Exam Vital Signs: Vital Signs Temp Resp BP BP Pulse Ox 11/24/19 09:00 97.1 F 24 H 124/71 92 L 11/24/19 08:52 124/71 11/24/19 07:00 97.7 F 18 106/71 94 L 11/24/19 06:00 21 H 111/76 91 L 11/24/19 04:00 97.4 F 18 113/63 94 L 11/24/19 02:00 19 142/69 H 93 L 11/24/19 00:00 97.6 F 20 122/75 92 L - Problem List Review Problem List Initiated/Reviewed/Updated: Yes - My Orders Last 24 Hours: My Active Orders 11/24/19 10:19 CBC WITH AUTO DIFF [HEME] Routine 11/25/19 06:00 COMPREHENSIVE METABOLIC PN,CMP [CHEM] DAILY 11/26/19 06:00 COMPREHENSIVE METABOLIC PN,CMP [CHEM] DAILY 11/27/19 06:00 COMPREHENSIVE METABOLIC PN,CMP [CHEM] DAILY 11/28/19 06:00 COMPREHENSIVE METABOLIC PN,CMP [CHEM] DAILY - Plan Plan:: ASSESSMENT AND PLAN - COVID 19 WITH BILATERAL PNEUMONIA-complicated by acute respiratory failure with hypoxia. Still requiring 12 L oxygen but is without increased WOB. Patient is needing a bump of 10 L facemask with exertional efforts but can recover back to 12 L NC -Dexamethasone 6 mg every 24 hours -Remdesivir 200 mg x 1 and then 100 mg daily x4 days (will check hepatic panel daily) - ALT elevated, AST WNL - May be candidate for second course of remdesivir for 5 days if patient continues to improve - will reassess on 11/26/2019 -Encourage prone positioning as able -Recheck d-dimer, LDH, CRP and procalcitonin every other day -Continue empiric antibiotic coverage with IV Doxycycline 100mg bid and ceftriaxone 2 gram every 24 hours (procalcitonin remains moderately elevated) -Supplement oxygen if needed to keep oxygen saturation greater than 92% -inhalers as needed -Follow-up cultures (negative so far) -He is systemically anticoagulated Venous Stasis Ulcers-both lower legs affected. Wound care team is aware. -Routine wound care as recommended by Dr. Betancourt's wound care team Chronic atrial fibrillation-rate is currently controlled. He is systemically anticoagulated. INR is elevated further today. -Continue rate control -Small dose of oral vitamin K today -Hold warfarin today and recheck INR in the morning Asthma-no wheezing at this time. -Management as above Hypertension-blood pressure acceptable so far. -continue outpatient medications Maintenance issues - - DVT prophylaxis - Coumadin (holding dose today) - GI prophylaxis - PPI - Nutrition - regular diet CODE STATUS - full code Disposition - anticipate discharge home after the hospital stay Kishor Gomez M.D 24 November 2019
[2019-11-24] MEDS: Doxycycline 100 MG in Sodium Chloride 0.9% 100 ML IV SCH ×2 (11:56→23:34)
[2019-11-24] MEDS: Dexamethasone 4 MG Tab PO SCH (20:43)
[2019-11-24] MEDS: Benzonatate 100 MG Cap PO PRN (20:44)
[2019-11-24] MEDS: cefTRIAXone 2 GM in Sodium Chloride 0.9% 50 ML IV SCH (22:18)
[2019-11-25] MEDS: guaiFENesin/Dextromethorphan 100-10 MG/5 ML Soln 10 ML Cup PO PRN (02:40)
[2019-11-25] MEDS: Acetaminophen 325 MG Tab PO PRN (02:40)
[2019-11-25] MEDS: Albuterol/Ipratropium 4 GM Inhalation Spray INH SCH ×3 (03:07→11:34)
[2019-11-25] MEDS ORDERED: Phytonadione 5 MG Tab PO ONE (06:13)
[2019-11-25] MEDS: Benzonatate 100 MG Cap PO PRN (06:34)
[2019-11-25] MEDS: Lisinopril 20 MG Tab PO SCH (08:57)
[2019-11-25] MEDS: Tamsulosin 0.4 MG Cap.ER PO SCH (08:57)
[2019-11-25] MEDS: Gabapentin 300 MG Cap PO SCH (08:57)
[2019-11-25] MEDS: Pantoprazole 40 MG Tab.CR PO SCH (08:57)
[2019-11-25] MEDS: Meloxicam 7.5 MG Tab PO SCH (08:57)
[2019-11-25] MEDS: Formoterol/Mometasone 200-5 MCG 8.8 GM Inhaler IH SCH (08:58)
[2019-11-25] MEDS: Fluticasone Propionate Nasal Spray 16 GM Bottle NASBOTH SCH (09:01)
--- NOTE | 2019-11-25 09:24 | PCM.DCSUM1 ---
Discharge Summary - Hospital Course Free Text/Narrative:: Evan Almanza is a 74 yo M admitted to [facility] on 20 November 2019 for management of dyspnea and cough. Subsequently the patient was found to have COVID 19 pneumonia. Despite administration of remdesivir, dexamethasone, the patient has continued to decline. He has gone from needing moderate flow oxygen (4-8 L NC) up to 15 L non-rebreather consistently with significant worsening of breathing. The patient's case was discussed with Dr. Guardado at [facility] and they have agreed to accept the patient in transfer. The patient was not given his final dose of remdesivir due to increasing LFT (AST/ALT both 2-3 x ULN), elevating INR and concerns about worsening hepatic function. The patient was not given convalescent plasma during the admission due to lack of availability. The patient does have an escalating WBC at time of discharge with discharge WBC at 16.4k. The patient is currently with what appears to be stable renal insufficiency with a creatinine of 1.7 (baseline 1.6-1.8). The patient is currently FULL CODE. He was given 80 mg IV solumedrol, 40 mg IV lasix prior to discharge to [facility]. He was given rocephin and doxycycline during the admission for suspected bacterial PNA prior to discovery of the COVID 19 dx. HPI Initial Comments: See above Diagnosis: Stroke: No - Discharge Data Discharge Date: 11/25/19 Discharge Disposition: DC/Tfer to Acute Hospital 02 Preliminary Cause of *Q: Other_Special Instruction (Progression of COVID 19 pneumonia) Condition: Serious - Referral to Home Health Primary Care Physician: PCP None - Discharge Diagnosis/Problem(s) (1) Sars-associated coronavirus as the cause of diseases classified elsewhere SNOMED Code(s): 676944292 ICD Code: B97.21 - SARS-ASSOCIATED CORONAVIRUS CAUSING DISEASES CLASSD ELSWHR Status: Acute Priority: High Current Visit: Yes Onset Date: ~11/20/19 Problem Details: Patient admitted on 19 November for COVID 19 PNA. patient has continued to deteriorate requiring 15 L oxygen via Non-rebreather mask with increasing work of breathing. The patient is not responding to remdesivir and is now exhibiting elevated LFT's as a result of the medication. He is reaching a point where more aggressive support may be required and thus transfer is requested. - Patient Instructions Diet: Usual Diet as Tolerated Activity: As Tolerated, Bedrest Driving: Do Not Drive Showering/Bathing: May Shower Notify Provider of: Fever, Increased Pain, Nausea and/or Vomiting - Discharge Plan *PRESCRIPTION DRUG MONITORING PROGRAM REVIEWED*: No *COPY OF PRESCRIPTION DRUG MONITORING REPORT IN PATIENT BRAXTON: No Home Medications: Home Meds Lisinopril 40 mg PO DAILY 02/08/14 [History] Warfarin [Coumadin] 2.5 mg PO ASDIRECTED 02/08/14 [History] Albuterol [IJD: Ventolin HFA] 2 puff INH Q6HR PRN 06/29/15 [History] Sildenafil Citrate [Viagra] 100 mg PO ASDIRECTED PRN 06/29/15 [History] Fluticasone Propion/Salmeterol [Wixela 250-50 Inhub] 1 dose INH BID 11/20/19 [History] Gabapentin [Neurontin] 300 mg PO BID 11/20/19 [History] Meloxicam 15 mg PO DAILY 11/20/19 [History] Tamsulosin HCl 0.4 mg PO DAILY 11/20/19 [History] hydroCHLOROthiazide [Hydrochlorothiazide] 25 mg PO DAILY 11/20/19 [History] Fluticasone Propionate [Flonase] 1 spray NASBOTH DAILY 11/21/19 [History] Oxygen Therapy Mode: Non-Rebreather Mask Oxygen Flow Rate (L/min): 15 Maintain SPO2% less than: 96 Maintain SpO2% greater than: 88 Patient Handouts: Severe Acute Respiratory Syndrome Forms: ED Department Discharge Referrals: PCP,None [Primary Care Provider] - - Discharge Summary/Plan Comment DC Time >30 min.: Yes - Patient Data Vitals - Most Recent: Last Vital Signs Temp 97.7 F 11/25/19 08:00 Pulse 73 11/25/19 08:00 Resp 24 H 11/25/19 08:00 BP 119/74 11/25/19 08:57 Pulse Ox 95 11/25/19 08:00 Weight - Most Recent: 220 lb Lab Results - Last 24 hrs: Laboratory Results - last 24 hr 11/24/19 11/24/19 11/24/19 Range/Units 10:41 10:41 10:41 WBC 15.7 H (4.5-11.0) K/uL RBC 4.40 (4.30-5.90) M/uL Hgb 13.3 (12.0-15.0) g/dL Hct 41.4 (40.0-54.0) % MCV 94 (80-98) fL MCH 30 (27-31) pg MCHC 32 (32-36) % Plt Count 170 (150-400) K/uL Neut % (Auto) (36-66) % Lymph % (Auto) (24-44) % [place] % (Auto) (2-6) % Eos % (Auto) (2-4) % Baso % (Auto) (0-1) % Add Manual Diff Yes Neutrophils % (Manual) 90 H (36-66) % Band Neutrophils % 2 L (5-11) % Lymphocytes % (Manual) 2 L (24-44) % Monocytes % (Manual) 4 (2-6) % PT (9.5-12.0) sec INR (0.80-1.20) D-Dimer, Quantitative 3140 H (0.0-400.0) ng/mL Sodium (140-148) mmol/L Potassium (3.6-5.2) mmol/L Chloride (100-108) mmol/L Carbon Dioxide (21-32) mmol/L Anion Gap (5.0-14.0) mmol/L BUN (7-18) mg/dL Creatinine (0.8-1.3) mg/dL Est Cr Clr Drug Dosing mL/min Estimated GFR (MDRD) (>60) Glucose (74-106) mg/dL Calcium (8.5-10.1) mg/dL Total Bilirubin (0.2-1.0) mg/dL AST (15-37) U/L ALT (12-78) U/L Alkaline Phosphatase (46-116) U/L C-Reactive Protein 5.36 H (0.0-0.3) mg/dL Total Protein (6.4-8.2) g/dL Albumin (3.4-5.0) g/dL Globulin (2.3-3.5) g/dL Albumin/Globulin Ratio (1.2-2.2) Procalcitonin ng/mL 11/24/19 11/25/19 11/25/19 Range/Units 10:41 05:15 05:15 WBC 16.9 H (4.5-11.0) K/uL RBC 4.18 L (4.30-5.90) M/uL Hgb 12.7 (12.0-15.0) g/dL Hct 38.8 L (40.0-54.0) % MCV 93 (80-98) fL MCH 30 (27-31) pg MCHC 33 (32-36) % Plt Count 106 L (150-400) K/uL Neut % (Auto) 88 H (36-66) % Lymph % (Auto) 7 L (24-44) % [place] % (Auto) 4 (2-6) % Eos % (Auto) 0 L (2-4) % Baso % (Auto) 1 (0-1) % Add Manual Diff Neutrophils % (Manual) (36-66) % Band Neutrophils % (5-11) % Lymphocytes % (Manual) (24-44) % Monocytes % (Manual) (2-6) % PT (9.5-12.0) sec INR (0.80-1.20) D-Dimer, Quantitative (0.0-400.0) ng/mL Sodium 143 (140-148) mmol/L Potassium 4.2 (3.6-5.2) mmol/L Chloride 108 (100-108) mmol/L Carbon Dioxide 25 (21-32) mmol/L Anion Gap 9.7 (5.0-14.0) mmol/L BUN 77 H* (7-18) mg/dL Creatinine 1.7 H (0.8-1.3) mg/dL Est Cr Clr Drug Dosing 41.90 mL/min Estimated GFR (MDRD) 40 L (>60) Glucose 145 H (74-106) mg/dL Calcium 8.5 (8.5-10.1) mg/dL Total Bilirubin 1.1 H D (0.2-1.0) mg/dL AST 131 H (15-37) U/L ALT 94 H (12-78) U/L Alkaline Phosphatase 109 (46-116) U/L C-Reactive Protein (0.0-0.3) mg/dL Total Protein 6.1 L (6.4-8.2) g/dL Albumin 2.3 L (3.4-5.0) g/dL Globulin 3.8 H (2.3-3.5) g/dL Albumin/Globulin Ratio 0.6 L (1.2-2.2) Procalcitonin 0.18 ng/mL 11/25/19 11/25/19 11/25/19 Range/Units 05:15 05:15 05:15 WBC (4.5-11.0) K/uL RBC (4.30-5.90) M/uL Hgb (12.0-15.0) g/dL Hct (40.0-54.0) % MCV (80-98) fL MCH (27-31) pg MCHC (32-36) % Plt Count (150-400) K/uL Neut % (Auto) (36-66) % Lymph % (Auto) (24-44) % [place] % (Auto) (2-6) % Eos % (Auto) (2-4) % Baso % (Auto) (0-1) % Add Manual Diff Neutrophils % (Manual) (36-66) % Band Neutrophils % (5-11) % Lymphocytes % (Manual) (24-44) % Monocytes % (Manual) (2-6) % PT 54.8 H (9.5-12.0) sec INR 5.19 H* (0.80-1.20) D-Dimer, Quantitative 2100 H (0.0-400.0) ng/mL Sodium (140-148) mmol/L Potassium (3.6-5.2) mmol/L Chloride (100-108) mmol/L Carbon Dioxide (21-32) mmol/L Anion Gap (5.0-14.0) mmol/L BUN (7-18) mg/dL Creatinine (0.8-1.3) mg/dL Est Cr Clr Drug Dosing mL/min Estimated GFR (MDRD) (>60) Glucose (74-106) mg/dL Calcium (8.5-10.1) mg/dL Total Bilirubin (0.2-1.0) mg/dL AST (15-37) U/L ALT (12-78) U/L Alkaline Phosphatase (46-116) U/L C-Reactive Protein 3.74 H (0.0-0.3) mg/dL Total Protein (6.4-8.2) g/dL Albumin (3.4-5.0) g/dL Globulin (2.3-3.5) g/dL Albumin/Globulin Ratio (1.2-2.2) Procalcitonin ng/mL 11/25/19 Range/Units 05:15 WBC (4.5-11.0) K/uL RBC (4.30-5.90) M/uL Hgb (12.0-15.0) g/dL Hct (40.0-54.0) % MCV (80-98) fL MCH (27-31) pg MCHC (32-36) % Plt Count (150-400) K/uL Neut % (Auto) (36-66) % Lymph % (Auto) (24-44) % [place] % (Auto) (2-6) % Eos % (Auto) (2-4) % Baso % (Auto) (0-1) % Add Manual Diff Neutrophils % (Manual) (36-66) % Band Neutrophils % (5-11) % Lymphocytes % (Manual) (24-44) % Monocytes % (Manual) (2-6) % PT (9.5-12.0) sec INR (0.80-1.20) D-Dimer, Quantitative (0.0-400.0) ng/mL Sodium (140-148) mmol/L Potassium (3.6-5.2) mmol/L Chloride (100-108) mmol/L Carbon Dioxide (21-32) mmol/L Anion Gap (5.0-14.0) mmol/L BUN (7-18) mg/dL Creatinine (0.8-1.3) mg/dL Est Cr Clr Drug Dosing mL/min Estimated GFR (MDRD) (>60) Glucose (74-106) mg/dL Calcium (8.5-10.1) mg/dL Total Bilirubin (0.2-1.0) mg/dL AST (15-37) U/L ALT (12-78) U/L Alkaline Phosphatase (46-116) U/L C-Reactive Protein (0.0-0.3) mg/dL Total Protein (6.4-8.2) g/dL Albumin (3.4-5.0) g/dL Globulin (2.3-3.5) g/dL Albumin/Globulin Ratio (1.2-2.2) Procalcitonin 0.12 ng/mL RODOLFO Results - Last 24 hrs: Microbiology 11/20/19 22:38 Aerobic Blood Culture - Preliminary Blood - Venous NO GROWTH AFTER 4 DAYS Anaerobic Blood Culture - Preliminary NO GROWTH AFTER 4 DAYS 11/20/19 22:30 Aerobic Blood Culture - Preliminary Blood - Venous - Lab Draw NO GROWTH AFTER 4 DAYS Anaerobic Blood Culture - Preliminary NO GROWTH AFTER 4 DAYS Med Orders - Current: Current Medications Acetaminophen (Tylenol) 650 mg PO Q4H PRN PRN Reason: Pain (Mild 1-3)/fever Last Admin: 11/25/19 02:40 Dose: 650 mg Documented by: Albuterol (Ventolin Hfa) 0 gm INH Q6HR PRN PRN Reason: Shortness of Breath Last Admin: 11/21/19 16:05 Dose: 2 puff Documented by: Albuterol/Ipratropium (Combivent Respimat) 0 gm INH Q4H [facility] Last Admin: 11/25/19 09:01 Dose: 2 puff Documented by: Benzonatate (Tessalon Perles) 100 mg PO TID PRN PRN Reason: Cough Last Admin: 11/25/19 06:34 Dose: 100 mg Documented by: Bisacodyl (Dulcolax) 5 mg PO DAILY PRN PRN Reason: Constipation Dexamethasone (Dexamethasone) 6 mg PO Q24H [facility] Last Admin: 11/24/19 20:43 Dose: 6 mg Documented by: Docusate Sodium (Colace) 100 mg PO BID PRN PRN Reason: Constipation Fluticasone Propionate (Flonase) 0 gm NASBOTH DAILY [facility] Last Admin: 11/25/19 09:01 Dose: 2 spray Documented by: Furosemide (Lasix) 40 mg IVPUSH ONETIME ONE Stop: 11/25/19 09:31 Gabapentin (Neurontin) 300 mg PO BID [facility] Last Admin: 11/25/19 08:57 Dose: 300 mg Documented by: Guaifenesin/Dextromethorphan (Robitussin Dm) 10 ml PO Q4H PRN PRN Reason: Cough Last Admin: 11/25/19 02:40 Dose: 10 ml Documented by: Hydrochlorothiazide (Hydrochlorothiazide) 25 mg PO DAILY [facility] Last Admin: 11/23/19 09:12 Dose: 25 mg Documented by: Hydrocortisone Sodium Succinate (Solu-Cortef) 80 mg IVPUSH ONETIME ONE Stop: 11/25/19 09:31 Doxycycline Hyclate 100 mg/ (Sodium Chloride) 100 mls @ 100 mls/hr IV Q12H [facility] Last Admin: 11/24/19 23:34 Dose: 100 mls/hr Documented by: Ceftriaxone Sodium 2 gm/ (Sodium Chloride) 50 mls @ 100 mls/hr IV Q24H [facility] Last Admin: 11/24/19 22:18 Dose: 100 mls/hr Documented by: Remdesivir 100 mg/ Sodium (Chloride) 100 mls @ 100 mls/hr IV Q24H [facility] Stop: 11/25/19 10:59 Last Admin: 11/24/19 10:24 Dose: 100 mls/hr Documented by: Lisinopril (Prinivil) 40 mg PO DAILY [facility] Last Admin: 11/25/19 08:57 Dose: 40 mg Documented by: Lorazepam (Ativan) 0.5 mg IV Q6H PRN PRN Reason: Nausea/Vomiting Lorazepam (Ativan) 0.5 mg PO Q4H PRN PRN Reason: Nausea Melatonin (Melatonin) 6 mg PO BEDTIME PRN PRN Reason: Insomnia Meloxicam (Mobic) 15 mg PO DAILY [facility] Last Admin: 11/25/19 08:57 Dose: 15 mg Documented by: Mometasone Furoate/Formoterol Fumar (Dulera 200-5 Mcg) 2 puff IH BID [facility] Last Admin: 11/25/19 08:58 Dose: 2 puff Documented by: Morphine Sulfate (Morphine) 2 mg IVPUSH Q2H PRN PRN Reason: Pain (severe 7-10) Ondansetron HCl (Zofran Odt) 4 mg PO Q4H PRN PRN Reason: Nausea able to take PO Last Admin: 11/24/19 16:24 Dose: 4 mg Documented by: Ondansetron HCl (Zofran) 4 mg IVPUSH Q4H PRN PRN Reason: Nausea/Vomiting Oxycodone HCl (Oxycodone) 5 mg PO Q4H PRN PRN Reason: Pain (moderate 4-6) Last Admin: 11/24/19 04:34 Dose: 5 mg Documented by: Pantoprazole Sodium (Protonix) 40 mg PO ACBREAKFAST [facility] Last Admin: 11/25/19 08:57 Dose: 40 mg Documented by: Tamsulosin HCl (Flomax) 0.4 mg PO DAILY [facility] Last Admin: 11/25/19 08:57 Dose: 0.4 mg Documented by: Discontinued Medications Dexamethasone (Dexamethasone) 6 mg PO ONETIME ONE Stop: 11/20/19 20:30 Last Admin: 11/20/19 20:48 Dose: 6 mg Documented by: Sodium Chloride (Normal Saline) 1,000 mls @ 999 mls/hr IV ASDIRECTED [facility] Last Admin: 11/20/19 20:48 Dose: 999 mls/hr Documented by: Ceftriaxone Sodium 2 gm/ (Sodium Chloride) 50 mls @ 100 mls/hr IV Q24H [facility] Last Admin: 11/20/19 22:44 Dose: 100 mls/hr Documented by: Doxycycline Hyclate 100 mg/ (Sodium Chloride) 100 mls @ 100 mls/hr IV Q12H [facility] Last Admin: 11/21/19 00:05 Dose: 100 mls/hr Documented by: Sodium Chloride (Normal Saline) 1,000 mls @ 100 mls/hr IV ASDIRECTED [facility] Remdesivir 200 mg/ Sodium (Chloride) 250 mls @ 250 mls/hr IV ONETIME ONE Stop: 11/21/19 11:29 Last Admin: 11/21/19 10:32 Dose: 250 mls/hr Documented by: Lorazepam (Ativan) 1 mg IV Q6H PRN PRN Reason: Nausea/Vomiting Ondansetron HCl (Zofran Odt) 4 mg PO Q6H PRN PRN Reason: Nausea able to take PO Last Admin: 11/23/19 09:09 Dose: 4 mg Documented by: Phytonadione (Mephyton) 1.25 mg PO ONETIME ONE Stop: 11/23/19 09:01 Last Admin: 11/23/19 09:12 Dose: 1.25 mg Documented by: Phytonadione (Mephyton) 2.5 mg PO ONETIME ONE Stop: 11/24/19 08:31 Last Admin: 11/24/19 08:51 Dose: 2.5 mg Documented by: Phytonadione (Mephyton) 5 mg PO ONETIME ONE Stop: 11/25/19 06:14 Last Admin: 11/25/19 06:34 Dose: 5 mg Documented by: Warfarin Sodium (Coumadin) 2.5 mg PO DAILY@1300 [facility] Last Admin: 11/21/19 12:30 Dose: 2.5 mg Documented by:
[2019-11-25] MEDS ORDERED: Hydrocortisone Sodium Succinate 100 MG/2 ML SDV IVPUSH ONE (09:30)
[2019-11-25] MEDS ORDERED: Furosemide 40 MG/4 ML VIAL IVPUSH ONE (09:30)
[2019-11-25] MEDS: REMDESIVIR (EUA) 100 MG in Sodium Chloride 0.9% 100 ML IV SCH (09:42)
[2019-11-25] MEDS: Doxycycline 100 MG in Sodium Chloride 0.9% 100 ML IV SCH (11:34)
[2019-11-25 12:27] VITALS: BP 172/103; PULSE 76
== END 2019-11-25 13:30 | DRG 177 ==
LOC: JP.ED 18:31 → JP.ICU 22:13
PROVIDERS: ADMIT Internal Medicine; ATTEND Family Medicine
PROC: XW033E5 Introduction of Remdesivir Anti-infective into Peripheral Vein, Percutaneous Approach, New Technology Group 5 (ICD-10-PCS; principal; 2019-11-20)
DX: U07.1 COVID-19 (principal); J18.9 Pneumonia, unspecified organism; R09.02 Hypoxemia; J12.89 Other viral pneumonia; J15.9 Unspecified bacterial pneumonia; I83.009 Varicose veins of unspecified lower extremity with ulcer of unspecified site; L97.919 Non-pressure chronic ulcer of unspecified part of right lower leg with unspecified severity; Z86.718 Personal history of other venous thrombosis and embolism; L97.929 Non-pressure chronic ulcer of unspecified part of left lower leg with unspecified severity; I48.20 Chronic atrial fibrillation, unspecified; R79.1 Abnormal coagulation profile; J45.909 Unspecified asthma, uncomplicated; I10 Essential (primary) hypertension; H54.7 Unspecified visual loss; K21.9 Gastro-esophageal reflux disease without esophagitis; M10.9 Gout, unspecified; E66.9 Obesity, unspecified; N42.9 Disorder of prostate, unspecified; I83.019 Varicose veins of right lower extremity with ulcer of unspecified site; I83.029 Varicose veins of left lower extremity with ulcer of unspecified site; Z79.01 Long term (current) use of anticoagulants; Z79.899 Other long term (current) drug therapy; Z88.8 Allergy status to other drugs, medicaments and biological substances; Z88.2 Allergy status to sulfonamides; Z86.010 Personal history of colon polyps; Z87.442 Personal history of urinary calculi; Z98.890 Other specified postprocedural states; Z87.891 Personal history of nicotine dependence; Z68.29 Body mass index [BMI] 29.0-29.9, adult
CPT/HCPCS: 36415; 71045; 80053; 81001; 82150; 83615; 83690; 83735; 84145; 85025; 85379; 85610; 86140; 96360; 99285; J7030; J8540; 80048; 83605; 85027; 87040; 94640; A9270-GY; J0696; J1720; J1940; J3490; J7050